=== PATIENT | female | born 1955 | race Caucasian/White ===

== ENCOUNTER 2016-12-17 22:50 | Inpatient (IN) | payer OTHER, MEDICAID ==
[~2016-12-17] VITALS: Ht 157.5 cm; Wt 128.7 kg
[~2016-12-17 22:50] MED LIST: ADVAI500I INH; ALBU17I INH; ALPR.25 PO; DUONI INH; FURO1TAB93 PO; HYDR-3129 PO; LEFL20 PO; LISI40TA PO; MILN50 PO; MONT10TA2 PO; PERC10TA27 PO; PROT40TA PO; TRAM50 PO; WARF3TAB PO; ZETI10TA5 PO; ZOCO80TA PO; ZOLP10TA3 PO
[2016-12-17 22:55] VITALS: BP 185/106; PULSE 116; RESP 16; TEMP 98.6; O2SAT 98
--- NOTE | 2016-12-17 23:38 | RADRPT ---
EXAM DATE/TIME: 12/17/2016 23:26 [facility] COMPARISON: No previous studies available for comparison. INDICATIONS : Left lateral wrist pain. No known injury. MEDICAL HISTORY : None. SURGICAL HISTORY : None. ENCOUNTER: Initial ACUITY: 2 days PAIN SCORE: 9/10 LOCATION: Left upper extremity FINDINGS: Three view examination of the left wrist demonstrates no soft tissue swelling, dislocation, or fractu re. The carpal bones are in normal alignment. The joint spaces are maintained. Bony mineralization is normal. CONCLUSION: 1. 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 No acute bony a bnormality. Uli Wheeler MD on December 17, 2016 at 23:32 Board Certified Radiologist. This report was verified electronically.
[2016-12-17 23:45] LABS: AUTOMATED NEUTROPHIL # 5.7 TH/MM3 (1.8-7.7); BASOPHIL # 0.1 TH/MM3 (0-0.2); BASOPHIL % 1.4 % (0.0-2.0); EOSINOPHIL # 0.3 TH/MM3 (0-0.4); EOSINOPHIL % 3.7 % (0.0-4.0); HEMATOCRIT 44.1 % (35.0-46.0); HEMO FLAGS DIFF FINAL; LYMPH % 22.8 % (9.0-44.0); MEAN CELL VOLUME 83.2 FL (80.0-100.0); MEAN CORPUSCULAR HEMOGLOBIN 27.6 PG (27.0-34.0); MEAN CORPUSCULAR HGB CONC 33.2 % (32.0-36.0); NEUT % 64.1 % (16.0-70.0); PLATELET COUNT 225 TH/MM3 (150-450); RED CELL DISTRIBUTION WIDTH 14.8 % (11.6-17.2); WHITE BLOOD COUNT 8.9 TH/MM3 (4.0-11.0)
[2016-12-18] VITALS (14 sets, daily range): BP systolic 106–171; BP diastolic 54–91; PULSE 67–86; RESP 16–18; TEMP 96.5–98.4; O2SAT 92–96
[2016-12-18 00:13] LABS: BICARBONATE 24.9 MEQ/L (21.0-32.0); POTASSIUM 3.8 MEQ/L (3.5-5.1)
[2016-12-18] MEDS ORDERED: AMLO5TAB2 PO (00:20)
[2016-12-18] MEDS ORDERED: LOSA100T PO (00:20)
[2016-12-18] MEDS ORDERED: CYCL1TAB29 PO (00:20)
[2016-12-18] MEDS ORDERED: AMBI10TA PO (00:20)
[2016-12-18] MEDS ORDERED: ZOLP10TA3 PO (00:20)
[2016-12-18] MEDS ORDERED: PANT40TA3 PO (00:20)
[2016-12-18] MEDS ORDERED: ADVA100A INH (00:20)
[2016-12-18] MEDS ORDERED: ALBUAER3 INH (00:20)
[2016-12-18] MEDS ORDERED: WARF-23 PO (00:20)
[2016-12-18] MEDS ORDERED: DICL1CAP4 PO (00:20)
[2016-12-18] MEDS ORDERED: FURO40TA PO (00:20)
[2016-12-18 00:31] LABS: PROTHROMBIN TIME - PATIENT 153.3 SEC (9.8-11.6)
[2016-12-18 00:34] LABS: INTERNATIONAL NORMALIZED RATIO 12.4 RATIO
--- NOTE | 2016-12-18 00:49 | PD ---
HPI Chief Complaint: Injury Time Seen by Provider: 23:13 Travel History International Travel<30 days: No Contact w/Intl Traveler<30days: [place] Traveled to: [facility] Traveled to known affect area: No History of Present Illness HPI 61 year-old female presents to the emergency department by private transportation complaining of increasing pain and swelling of the left upper extremity since last evening. Pain is primarily localized to the left wrist but also effects the entire arm. Patient states she has history of previous DVT and PE. Patient takes Coumadin 5 mg daily at 11 PM. Last dose of Coumadin was Monday evening at 11 PM. Patient denies any recent injury or fall in the last several days however at the end of October did have a fall while visiting in the [facility]. She denies any recent head injury. Patient's had no nosebleed no bleeding from her gums no hemoptysis no hematemesis no coffee- ground emesis no melena hematochezia. Patient states occasionally she notes a small amount of blood in her urine. Patient has had some increased bruising of late but she frequently has increased bruising. Patient states she has been home returning from the visit to the [facility] 2 weeks ago. Patient states while she was in the [facility] she ate a lot of that she and once returning here her diet has changed and has not been eating any vegetables. Patient denies any lower extremity pain or swelling. Patient has had no shortness of breath pleuritic pain or chest pain. Patient also denies any fever or chills. PFSH Past Medical History Narrative Medical Anemia arthritis asthma DVT PE [place] filter Coumadin therapy diabetes COPD dyslipidemia anxiety depression cholecystectomy hysterectomy no tobacco use nursing notes reviewed Anemia: Yes Arthritis: Yes Asthma: Yes Autoimmune Disease: No Anxiety: Yes Depression: Yes Heart Rhythm Problems: Yes Cancer: Yes (UTERUS) Cardiovascular Problems: Yes (IVC FILTER) High Cholesterol: Yes Chemotherapy: No Chest Pain: Yes Congestive Heart Failure: No COPD: Yes Cerebrovascular Accident: No Diabetes: Yes (CONTROLLED BY DIET) Patient Takes Glucophage: No Diminished Hearing: No Deep Vein Thrombosis: Yes Endocrine: Yes Gastrointestinal Disorders: Yes GERD: Yes Genitourinary: Yes (LEFT KIDNEY MASS) Headaches: Yes Hiatal Hernia: Yes Hypertension: Yes Immune Disorder: No Inguinal Hernia: Yes Implanted Vascular Access Dvce: No Kidney Stones: No Musculoskeletal: Yes ( THERAPY FOR BILAT KNEES) Neurologic: Yes Psychiatric: Yes Reproductive: No Respiratory: Yes (HOME 02) Immunizations Current: Yes Migraines: Yes Pneumonia: Yes Radiation Therapy: No Renal Failure: No Seizures: No Sickle Cell Disease: No Sleep Apnea: Yes (CPAP AT HOME. ) Thyroid Disease: No Ulcer: No Tetanus Vaccination: < 5 Years Influenza Vaccination: Yes PNEUMOCCOCAL Vaccine (Year): 2 ?: Not Menopausal: Yes : 7 Para: 6 Miscarriage: 1 Past Surgical History Abdominal Surgery: Yes (MULTIPLE HERNIA- MESH IN PLACE) AICD: No Appendectomy: Yes Arteriovenous Shunt: No Cardiac Surgery: No Cholecystectomy: Yes Ear Surgery: No Endocrine Surgery: No Eye Surgery: No Genitourinary Surgery: No Gynecologic Surgery: Yes (HYSTERECTOMY) Hysterectomy: Yes Insulin Pump: No Joint Replacement: No Oral Surgery: No Pacemaker: No Thoracic Surgery: No Other Surgery: Yes (VENA CAVA FILTER-06/14/11) Social History Alcohol Use: No Tobacco Use: No Substance Use: No Allergies-Medications (Allergen,Severity, Reaction): Coded Allergies: ibuprofen (Unverified Allergy, Severe, ITCHING, 11/29/16) Reported Meds & Prescriptions Reported Meds & Active Scripts Active Reported Proair Hfa 8.5 GM Inh (Albuterol Sulfate) 90 Mcg/Act Aer 1 Puff INH Q4H PRN 108 mcg/actuation Advair Diskus Inh (Fluticasone-Salmeterol Inh) 100-50 Mcg/Blist Aer 1 Puff INH BID Rinse mouth after use. Zorvolex (Diclofenac) 35 Mg Cap 75 Mg PO DAILY Warfarin 5 Mg Tab 5 Mg PO DAILY Furosemide 40 Mg Tab 40 Mg PO DAILY Pantoprazole (Pantoprazole Sodium) 40 Mg Tab 40 Mg PO DAILY Zolpidem (Zolpidem Tartrate) 10 Mg Tab 10 Mg PO HS PRN Amlodipine (Amlodipine Besylate) 5 Mg Tab 5 Mg PO DAILY Losartan (Losartan Potassium) 100 Mg Tab 100 Mg PO DAILY Flexeril (Cyclobenzaprine HCl) 10 Mg Tab 10 Mg PO TID Ambien (Zolpidem Tartrate) 10 Mg Tab 10 Mg PO HS PRN Review of Systems Except as stated in HPI: all other systems reviewed are Neg General / Constitutional: No: Fever, Chills HENT: No: Congestion, Nosebleed, Gingival Bleeding Cardiovascular: No: Chest Pain or Discomfort Respiratory: No: Shortness of Breath, Hemoptysis, Pleuritic Pain Gastrointestinal: No: Nausea, Vomiting, Hematemesis, Hematochezia Genitourinary: No: Hematuria, Vaginal Bleeding Musculoskeletal: Positive: Edema (left upper extremity), Pain (left upper extremity) Skin: No Rash Neurologic: No: Weakness Psychiatric: No: Anxiety Endocrine: No: Heat Intolerance Hematologic/Lymphatic: Positive: Easy Bruising Physical Exam Narrative GENERAL: Well developed well nourished female --no acute distress no respiratory distress SKIN: Warm and dry. HEAD: Normocephalic. EYES: No scleral icterus. No injection or drainage. NECK: Supple, trachea midline. No JVD or lymphadenopathy. CARDIOVASCULAR: Regular rate and rhythm without murmurs, gallops, or rubs. RESPIRATORY: Breath sounds equal bilaterally. No accessory muscle use. GASTROINTESTINAL: Abdomen soft, non-tender, nondistended. MUSCULOSKELETAL: No cyanosis, LUE edema tender left wrist increased pain on range of motion distally neurovascularly tendon intact; capillary refill less than 2 seconds; radial ulnar pulses 2++=. BACK: Nontender without obvious deformity. No CVA tenderness. Data Data Last Documented VS Vital Signs Date Time Temp Pulse Resp B/P (MAP) Pulse Ox O2 Delivery O2 Flow Rate FiO2 12/18/16 02:33 80 16 164/91 (115) 96 Room Air 12/17/16 22:55 98.6 Orders Orders Wrist, Complete ([id number]) (12/17/16 ) Us Arm Venous Doppler (12/17/16 ) Prothrombin Time / Inr (Pt) (12/17/16 23:13) Complete Blood Count With Diff (12/17/16 23:13) Basic Metabolic Panel (Bmp) (12/17/16 23:13) ^ Saline Lock (12/18/16 00:49) Phytonadione (Mephyton) (12/18/16 01:00) Type And Screen (12/18/16 00:49) Acetamin-Hydrocod 325-5 Mg (Holliday 5-325 (12/18/16 01:15) Urinalysis - C+S If Indicated (12/18/16 01:30) Admit Order (Ed Use Only) (12/18/16 ) ^ Saline Lock (12/18/16 02:37) Resp Oxygen Alex C Titrat 1-4 L (12/18/16 ) Notify Dr: Other (12/18/16 02:37) Sodium Chloride 0.9% Flush (Ns Flush) (12/18/16 09:00) Sodium Chloride 0.9% Flush (Ns Flush) (12/18/16 02:45) Labs Laboratory Tests Test 12/17/16 23:30 White Blood Count 8.9 TH/MM3 Red Blood Count 5.30 MIL/MM3 Hemoglobin 14.7 GM/DL Hematocrit 44.1 % Mean Corpuscular Volume 83.2 FL Mean Corpuscular Hemoglobin 27.6 PG Mean Corpuscular Hemoglobin Concent 33.2 % Red Cell Distribution Width 14.8 % Platelet Count 225 TH/MM3 Mean Platelet Volume 10.9 FL Neutrophils (%) (Auto) 64.1 % Lymphocytes (%) (Auto) 22.8 % Monocytes (%) (Auto) 8.0 % Eosinophils (%) (Auto) 3.7 % Basophils (%) (Auto) 1.4 % Neutrophils # (Auto) 5.7 TH/MM3 Lymphocytes # (Auto) 2.0 TH/MM3 Monocytes # (Auto) 0.7 TH/MM3 Eosinophils # (Auto) 0.3 TH/MM3 Basophils # (Auto) 0.1 TH/MM3 CBC Comment DIFF FINAL Differential Comment Prothrombin Time 153.3 SEC Prothromb Time International Ratio 12.4 RATIO Blood Urea Nitrogen 13 MG/DL Creatinine 0.90 MG/DL Random Glucose 134 MG/DL Calcium Level 8.7 MG/DL Sodium Level 140 MEQ/L Potassium Level 3.8 MEQ/L Chloride Level 106 MEQ/L Carbon Dioxide Level 24.9 MEQ/L Anion Gap 9 MEQ/L Estimat Glomerular Filtration Rate 64 ML/MIN [facility] Medical Decision Making Medical Screen Exam Complete: Yes Emergency Medical Condition: Yes Medical Record Reviewed: Yes Interpretation(s) INR 12.9 Ultrasound: No DVT Left forearm x-ray: No acute abnormality Differential Diagnosis Left upper extremity pain, DVT, arthritis, occult fracture, contusion, cervical radiculopathy, cellulitis Narrative Course Well-developed obese female laying of severe pain to the left upper extremity that she reports is new without any recent injury or fall 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 Patient denies fever or chills. No redness or increased warmth. No pallor or coolness no evidence for limits ischemia Imaging study that extremity identified informed no acute bony injury arthritis is present Ultrasound identifies no DVT INR is found to be markedly prolonged at 12.9 INR Patient is aware that INR is prolonged and now reports that since being in the emergency department has noticed increasing bruising of the right upper extremity that was not present upon her arrival and also notes that she has had some bleeding with urination. Patient at high risk for fall therefore patient' s case discussed with on-call medicine to put in for observation to to follow up on repeat INR patient otherwise stable. Physician Communication Physician Communication discussed with [employer] medicine service Diagnosis Primary Impression: Supratherapeutic INR Admitting Information Admitting Physician Requests: Observation Ruby Hammonds MD Dec 18, 2016 00:49
[2016-12-18] MEDS ORDERED: PHYTONADIONE 5 MG TAB PO ONE ×2 (01:00→09:00)
--- NOTE | 2016-12-18 01:13 | RADRPT ---
EXAM DATE/TIME: 12/18/2016 00:29 [facility] COMPARISON: No previous studies available for comparison. INDICATIONS : Left arm pain, numbness, and tingling. MEDICAL HISTORY : Hypertension. Hypercholesterolemia. Chronic obstructive pulmonary disease. Migraines. Irregular heart beat. DVT. Asthma. Pneumonia. Sleep apnea. Hiatal hernia. GERD. . Left kidney mass. Arthriti s. Osteoporosis. Diabetes. Liver disease. Depression. Anxiety. Uterine cancer. Blood transfusion. Ing uinal hernia. SURGICAL HISTORY : Cholecystectomy. Appendectomy. Multiple hernia repairs. Hysterectomy. IVC filter. ENCOUNTER: Initial ACUITY: 2 day PAIN SCORE: 6/10 LOCATION: Left arm. FINDINGS: There is spontaneous flow documented in the brachial, basilic, cephalic, axillary, and subclavian vei ns. The vessels are compressible and augmentation response is documented. No filling defects are se en. The flow is phasic with respiration. Direction of flow in the jugular vein is caudal. CONCLUSION: Normal examination. Uli Wheeler MD on December 18, 2016 at 1:11 Board Certified Radiologist. This report was verified electronically.
[2016-12-18] MEDS ORDERED: ACETAMINOPHEN/HYDROcodone 325 MG/5 MG TAB PO ONE (01:15)
[2016-12-18] MEDS ORDERED: SENNOSIDES 8.6 MG TAB PO PRN (02:45)
[2016-12-18] MEDS ORDERED: NALOXONE HCL 0.4 MG/ML AMP IV PRN (02:45)
[2016-12-18] MEDS ORDERED: SODIUM CHLORIDE 0.9% FLUSH 10 ML FLUSH IV FLUSH PRN (02:45)
[2016-12-18] MEDS ORDERED: SODIUM CHLORIDE 0.9% FLUSH 10 ML FLUSH IVF PRN (02:45)
[2016-12-18] MEDS ORDERED: BISACODYL 10 MG SUPP RECTAL PRN (02:45)
[2016-12-18] MEDS ORDERED: ONDANSETRON HCL 4 MG/2 ML VIAL IVP PRN (02:45)
[2016-12-18] MEDS ORDERED: LACTULOSE SYRUP 20 GM/30 ML CUP PO PRN (02:45)
[2016-12-18 03:41] LABS: BACTERIA, URINE RARE /hpf; BLOOD, URINE NEG (NEG); COMMENT (UR) CULT NOT INDICATED; CULTURE IF INDICATED CULT NOT INDICATED; GLUCOSE,URINE NEG (NEG); KETONE, URINE NEG (NEG); MUCUS URINE FEW /lpf (OCC); NITRITE,URINE NEG (NEG); PH, URINE 6.5 (5.0-8.5); SQUAMOUS EPITHELIAL CELL URINE <1 /hpf (0-5); URINE COLOR LIGHT-YELLOW (YELLW/STRAW)
[2016-12-18] MEDS: SODIUM CHLOR 0.9% 1000 ML INJ 1,000 ML IV SCH ×2 (04:05→20:47)
[2016-12-18] MEDS: amLODIPine BESYLATE 5 MG TAB PO SCH ×2 (04:05→10:04)
[2016-12-18] MEDS ORDERED: ACETAMINOPHEN 325 MG TAB PO PRN (06:15)
[2016-12-18] MEDS ORDERED: ENALAPRILAT 1.25 MG/ML VIAL IV PUSH PRN (06:45)
[2016-12-18 07:28] LABS: PROTHROMBIN TIME - PATIENT 134.7 SEC (9.8-11.6)
[2016-12-18] MEDS: DOCUSATE SODIUM 50 MG/SENNA 8.6 MG TAB PO SCH ×2 (09:00→20:44)
[2016-12-18] MEDS ORDERED: NON-FORMULARY DRUG (Fluticasone-Salmeterol Inh (Advair Diskus Inh) 1 PUFF) INH SCH (09:00)
[2016-12-18] MEDS ORDERED: amLODIPine BESYLATE 5 MG TAB PO SCH (09:00)
[2016-12-18] MEDS ORDERED: SODIUM CHLORIDE 0.9% FLUSH 10 ML FLUSH IV FLUSH SCH (09:00)
[2016-12-18 09:20] LABS: AUTOMATED NEUTROPHIL # 4.7 TH/MM3 (1.8-7.7); BASOPHIL % 0.2 % (0.0-2.0); EOSINOPHIL # 0.3 TH/MM3 (0-0.4); EOSINOPHIL % 4.3 % (0.0-4.0); HEMO FLAGS DIFF FINAL; LYMPH % 27.8 % (9.0-44.0); LYMPHOCYTE # 2.2 TH/MM3 (1.0-4.8); MEAN CELL VOLUME 83.9 FL (80.0-100.0); MEAN CORPUSCULAR HEMOGLOBIN 26.8 PG (27.0-34.0); MEAN CORPUSCULAR HGB CONC 31.9 % (32.0-36.0); MONO % 9.4 % (0.0-8.0); NEUT % 58.3 % (16.0-70.0); PLATELET COUNT 223 TH/MM3 (150-450); RED BLOOD COUNT 5.12 MIL/MM3 (4.00-5.30); RED CELL DISTRIBUTION WIDTH 14.5 % (11.6-17.2)
--- NOTE | 2016-12-18 09:25 | EKG ---
Date Performed: 12/18/2016 Time Performed: 08:54:47 PTAGE: 61 years EKG: Sinus rhythm NONSPECIFIC T-WAVE ABNORMALITY BORDERLINE ECG PREVIOUS TRACING : 09/03/2011 07.33 DOCTOR: Trav Alves Interpretating Date/Time 12/18/2016 09:21:52
--- NOTE | 2016-12-18 09:29 | HHI.HP ---
HPI Service [facility] Primary Care Physician Edgard Corral MD Admission Diagnosis coumadin coagulopathy Diagnoses: Chief Complaint: Left arm pain Travel History International Travel<30 Days: No Contact w/Intl Traveler <30 Da: [place] Traveled to: [facility] Traveled to Known Affected Are: No History of Present Illness This is a pleasant 61-year-old female who presented to the emergency room with complaint of left wrist pain. Patient has significant past medical history diet -controlled diabetes, anxiety, depression, rheumatoid arthritis, DVT and PE, Maame filter, chronic anticoagulation therapy with Coumadin. Patient indicates that the pain started last evening, started on the wrist inner aspect and then moved up to her shoulder and chest wall, the pain to the wrist is worse with movement and with minimal touch. Denies any recent injury. However when she was in the [facility] October she had a bad fall and since then she's had a lot of joint pain especially in her shoulders and knees. She does have a history of rheumatoid arthritis for which she follows up regularly with Dr. Juarez. Dr. Diamond had ordered CT scans of her shoulders and knees as outpatient to evaluate, however the patient had not completed dose. Patient denies any other symptoms such as fever, chills, shortness of breath, no diaphoresis. She presented to the emergency room for further evaluation, had ultrasound of the left arm that was negative for DVT. Left wrist x-ray showed osteoarthritis. Laboratory workup was completed, patient was noted with supratherapeutic INR, initially 12.4. She did received vitamin K 5 mg PO and came down to 11. BMP was unremarkable. Patient indicates that she has been on Coumadin 5 mg for many years and has not had any issues with elevated INR in the past however she has been noncompliant with her diet and has been eating a lot of spinach. Her last INR was at her PCP and it was 2. Denies any hematemesis, no hemoptysis, no blood in the stool, no blood in urine. Patient is not on any maintenance therapy for her rheumatoid arthritis, she is on diclofenac and Flexeril. Patient is admitted for further evaluation and treatment. Review of Systems Constitutional: DENIES: Diaphoretic episodes, Fatigue, Fever, Weight gain, Weight loss, Chills, Dizziness, Change in appetite, Night Sweats Endocrine: DENIES: Abnorml menstrual pattern, Heat/cold intolerance, Polydipsia , Polyuria, Polyphagia Eyes: DENIES: Blurred vision, Diplopia, Eye inflammation, Eye pain, Vision loss , Photosensitivity, Double Vision Ears, nose, mouth, throat: DENIES: Tinnitus, Hearing loss, Vertigo, Nasal discharge, Oral lesions, Throat pain, Hoarseness, Ear Pain, Running Nose, Epistaxis, Sinus Pain, Toothache, Odynophagia Respiratory: DENIES: Apneas, Cough, Snoring, Wheezing, Hemoptysis, Sputum production, Shortness of breath Cardiovascular: DENIES: Chest pain, Palpitations, Syncope, Dyspnea on Exertion , PND, Lower Extremity Edema, Orthopnea, Claudication Gastrointestinal: DENIES: Abdominal pain, Black stools, Bloody stools, Constipation, Diarrhea, Nausea, Vomiting, Difficulty Swallowing, Anorexia Genitourinary: DENIES: Abnormal vaginal bleeding, Dysmenorrhea, Dyspareunia, Sexual dysfunction, Urinary frequency, Urinary incontinence, Urgency, Hematuria , Dysuria, Nocturia, Vaginal discharge Musculoskeletal: COMPLAINS OF: Joint pain (left wrist and arm), Muscle aches, Joint Swelling (left wrist), Back pain, Neck pain, DENIES: Stiffness Integumentary: DENIES: Abnormal pigmentation, Pruritus, Rash, Nail changes, Breast masses, Breast skin changes, Nipple discharge Hematologic/lymphatic: DENIES: Bruising, Lymphadenopathy Immunologic/allergic: DENIES: Eczema, Urticaria Neurologic: DENIES: Abnormal gait, Headache, Localized weakness, Paresthesias, Seizures, Speech Problems, Tremor, Poor Balance Psychiatric: DENIES: Anxiety, Confusion, Mood changes, Depression, Hallucinations, Agitation, Suicidal Ideation, Homicidal Ideation, Delusions Past Family Social History Past Medical History Hypertension Diabetes-diet controlled COPD-has never smoked Obstructive sleep apnea Rheumatoid Arthritis Degenerative joint disease History of peptic ulcer disease Obesity History of pulmonary emboli Past Surgical History IVC filter placement Total hysterectomy Cholecystectomy Appendectomy EGD/colonoscopy Reported Medications Reported Meds & Active Scripts Active Reported Proair Hfa 8.5 GM Inh (Albuterol Sulfate) 90 Mcg/Act Aer 1 Puff INH Q4H PRN 108 mcg/actuation Advair Diskus Inh (Fluticasone-Salmeterol Inh) 100-50 Mcg/Blist Aer 1 Puff INH BID Rinse mouth after use. Zorvolex (Diclofenac) 35 Mg Cap 75 Mg PO DAILY Warfarin 5 Mg Tab 5 Mg PO DAILY Furosemide 40 Mg Tab 40 Mg PO DAILY Pantoprazole (Pantoprazole Sodium) 40 Mg Tab 40 Mg PO DAILY Zolpidem (Zolpidem Tartrate) 10 Mg Tab 10 Mg PO HS PRN Amlodipine (Amlodipine Besylate) 5 Mg Tab 5 Mg PO DAILY Losartan (Losartan Potassium) 100 Mg Tab 100 Mg PO DAILY Flexeril (Cyclobenzaprine HCl) 10 Mg Tab 10 Mg PO TID Ambien (Zolpidem Tartrate) 10 Mg Tab 10 Mg PO HS PRN Allergies: Coded Allergies: ibuprofen (Unverified Allergy, Severe, ITCHING, 11/29/16) Active Ordered Medications Inpatient Medications Acetaminophen (Tylenol) 650 mg Q4H PRN PO PAIN SCALE 4 TO 10 Last administered on 12/18/16 06:34; Start 12/18/16 at 06:15 Acetaminophen/ Hydrocodone Bitart (Brooten 5-325 Mg) 1 tab ONCE ONCE PO Last administered on 12/18/16 01:37; Start 12/18/16 at 01:15; Stop 12/18/16 at 01:17; Status DC Amlodipine Besylate (Norvasc) 5 mg DAILY PO Last administered on 12/18/16 04:05 ; Start 12/18/16 at 03:00 Bisacodyl (Dulcolax Supp) 10 mg DAILY PRN RECTAL SEVERE CONSITIPATION; Start at 02:45 Budesonide/ Formoterol Fumarate (Symbicort 80-4.5 Mcg Inh) 2 puff BID INH ; Start 12/18/16 at 09:00 Cyclobenzaprine HCl (Flexeril) 10 mg TID PO ; Start 12/18/16 at 09:00 Enalaprilat (Vasotec Inj) 1.25 mg Q6H PRN IV PUSH SBP>160, DBP>90 Last administered on 12/18/16 06:42; Start 12/18/16 at 06:45 Lactulose (Lactulose Liq) 30 ml DAILY PRN PO SEVERE CONSITIPATION; Start at 02:45 Losartan Potassium (Cozaar) 100 mg DAILY PO ; Start 12/18/16 at 09:00 Magnesium Hydroxide (Milk Of Magnesia Liq) 30 ml Q12H PRN PO MILD - MODERATE CONSTIPATION; Start 12/18/16 at 02:45 Naloxone HCl (Narcan Inj) 0.4 mg UNSCH PRN IV SEE LABEL COMMENTS; Start at 02:45 Non-Formulary Medication 1 puff BID INH ; Start 12/18/16 at 09:00; Stop 12/18/16 at 09:00; Status DC Ondansetron HCl (Zofran Inj) 4 mg Q6H PRN IVP NAUSEA OR VOMITING; Start at 02:45 Pantoprazole Sodium (Protonix) 40 mg DAILY PO ; Start 12/18/16 at 09:00 Phytonadione (Mephyton) 5 mg ONCE ONCE PO ; Start 12/18/16 at 09:00; Stop at 09:01; Status DC Senna/Docusate Sodium (Marilyn-Colace) 1 tab BID PO ; Start 12/18/16 at 09:00 Sennosides (Senokot) 17.2 mg Q12H PRN PO MODERATE - SEVERE CONSTIPATION; Start 12/18/16 at 02:45 Sodium Chloride (NS Flush) 2 ml BID IV FLUSH ; Start 12/18/16 at 09:00 Family History Reviewed and noncontributory Social History Patient denies any tobacco, alcohol or illicit drug Physical Exam Vital Signs Vital Signs Date Time Temp Pulse Resp B/P (MAP) Pulse Ox O2 Delivery O2 Flow Rate FiO2 12/18/16 07:24 96.5 68 18 128/76 (93) 95 12/18/16 05:36 95 Nasal Cannula 2.00 Humidified 12/18/16 05:32 96.9 80 18 171/85 (113) 95 12/18/16 05:10 12/18/16 03:33 96 12/18/16 02:33 80 16 164/91 (115) 96 Room Air 12/17/16 22:55 98.6 116 16 185/106 (132) 98 Room Air Physical Exam GENERAL: This is a well-nourished, well-developed patient, in no apparent distress. SKIN: No rashes, ecchymoses or lesions. Cool and dry. HEAD: Atraumatic. Normocephalic. No temporal or scalp tenderness. EYES: Pupils equal round and reactive. Extraocular motions intact. No scleral icterus. No injection or drainage. ENT: Nose without bleeding, purulent drainage or septal hematoma. Throat without erythema, tonsillar hypertrophy or exudate. Uvula midline. Airway patent. NECK: Trachea midline. No JVD or lymphadenopathy. Supple, nontender, no meningeal signs. CARDIOVASCULAR: Regular rate and rhythm without murmurs, gallops, or rubs. RESPIRATORY: Clear to auscultation. Breath sounds equal bilaterally. No wheezes , rales, or rhonchi. GASTROINTESTINAL: Abdomen soft, non-tender, nondistended. No hepato-splenomegaly , or palpable masses. No guarding. MUSCULOSKELETAL: Left wrist slightly swollen, tender to palpation to the volar aspect. Increased pain with flexion. No other joint abnormality. Bilateral lower extremities without any clubbing, no cyanosis, trace pretibial edema. Pedal pulses 2+ bilaterally NEUROLOGICAL: Awake, alert oriented 3. No focal deficits Laboratory Laboratory Tests Test 12/17/16 23:30 12/18/16 03:25 12/18/16 06:55 12/18/16 09:05 White Blood Count 8.9 8.0 Red Blood Count 5.30 5.12 Hemoglobin 14.7 13.7 Hematocrit 44.1 43.0 Mean Corpuscular Volume 83.2 83.9 Mean Corpuscular Hemoglobin 27.6 26.8 Mean Corpuscular Hemoglobin Concent 33.2 31.9 Red Cell Distribution Width 14.8 14.5 Platelet Count 225 223 Mean Platelet Volume 10.9 10.0 Neutrophils (%) (Auto) 64.1 58.3 Lymphocytes (%) (Auto) 22.8 27.8 Monocytes (%) (Auto) 8.0 9.4 Eosinophils (%) (Auto) 3.7 4.3 Basophils (%) (Auto) 1.4 0.2 Neutrophils # (Auto) 5.7 4.7 Lymphocytes # (Auto) 2.0 2.2 Monocytes # (Auto) 0.7 0.8 Eosinophils # (Auto) 0.3 0.3 Basophils # (Auto) 0.1 0.0 CBC Comment DIFF FINAL DIFF FINAL Differential Comment Prothrombin Time 153.3 134.7 Prothromb Time International Ratio 12.4 11.0 Blood Urea Nitrogen 13 Creatinine 0.90 Random Glucose 134 Calcium Level 8.7 Sodium Level 140 Potassium Level 3.8 Chloride Level 106 Carbon Dioxide Level 24.9 Anion Gap 9 Estimat Glomerular Filtration Rate 64 Urine Color LIGHT-YELLOW Urine Turbidity CLEAR Urine pH 6.5 Urine Specific [place] 1.009 Urine Protein NEG Urine Glucose (UA) NEG Urine Ketones NEG Urine Occult Blood NEG Urine Nitrite NEG Urine Bilirubin NEG Urine Urobilinogen LESS THAN 2.0 Urine Leukocyte Esterase NEG Urine RBC 1 Urine WBC 1 Urine Squamous Epithelial Cells <1 Urine Bacteria RARE Urine Mucus FEW Microscopic Urinalysis Comment CULT NOT INDICATED Result Diagram: 12/18/16 0905 12/17/16 2330 Imaging Last Impressions Wrist X-Ray 12/17/16 0000 Signed Impressions: Service Date/Time: Saturday, December 17, 2016 23:26 - CONCLUSION: 1. 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 No acute bony abnormality. Uli Wheeler MD Upper Extremity Ultrasound 12/17/16 0000 Signed Impressions: Service Date/Time: Sunday, December 18, 2016 00:29 - CONCLUSION: Normal examination. Uli Wheeler MD Caprini VTE Risk Assessment Caprini VTE Risk Assessment: Mod/High Risk (score >= 2) VTE Pharm Contraindication: Coagulopathy,INR elevated Caprini Risk Assessment Model Point Value = 1 Point Value = 2 Point Value = 3 Point Value = 5 Age 41-60 Minor surgery BMI > 25 kg/m2 Swollen legs Varicose veins or History of unexplained or recurrent spontaneous Oral contraceptives or hormone replacement Sepsis (< 1 month) Serious lung disease, including pneumonia (< 1 month) Abnormal pulmonary function Acute myocardial infarction Congestive heart failure (< 1 month) History of inflammatory bowel disease Medical patient at bed rest Age 61-74 Arthroscopic surgery Major open surgery (> 45 min) Laparoscopic surgery (> 45 min) Malignancy Confined to bed (> 72 hours) Immobilizing plaster cast Central venous access Age >= 75 History of VTE Family history of VTE Factor V Leiden Prothrombin [id number] Lupus anticoagulant Anticardiolipin antibodies Elevated serum homocysteine Heparin-induced thrombocytopenia Other congenital or acquired thrombophilia Stroke (< 1 month) Elective arthroplasty Hip, pelvis, or leg fracture Acute spinal cord injury (< 1 month) Prophylaxis Regimen Total Risk Factor Score Risk Level Prophylaxis Regimen 0-1 Low Early ambulation 2 Moderate Order ONE of the following: *Sequential Compression Device (SCD) *Heparin 5000 units SQ BID 3-4 Higher Order ONE of the following medications: *Heparin 5000 units SQ TID *Enoxaparin/Lovenox 40 mg SQ daily (WT < 150 kg, CrCl > 30 mL/min) *Enoxaparin/Lovenox 30 mg SQ daily (WT < 150 kg, CrCl > 10-29 mL/min) *Enoxaparin/Lovenox 30 mg SQ BID (WT < 150 kg, CrCl > 30 mL/min) AND/OR *Sequential Compression Device (SCD) 5 or more Highest Order ONE of the following medications: *Heparin 5000 units SQ TID (Preferred with Epidurals) *Enoxaparin/Lovenox 40 mg SQ daily (WT < 150 kg, CrCl > 30 mL/min) *Enoxaparin/Lovenox 30 mg SQ daily (WT < 150 kg, CrCl > 10-29 mL/min) *Enoxaparin/Lovenox 30 mg SQ BID (WT < 150 kg, CrCl > 30 mL/min) AND *Sequential Compression Device (SCD) Assessment and Plan Problem List: (1) Supratherapeutic INR ICD Codes: R79.1 - Abnormal coagulation profile Status: Acute (2) Left arm pain ICD Codes: M79.602 - Pain in left arm Status: Acute (3) HTN (hypertension) ICD Codes: I10 - Essential (primary) hypertension Status: Chronic (4) Rheumatoid arthritis flare ICD Codes: M06.9 - Rheumatoid arthritis, unspecified Status: Acute (5) Left wrist pain ICD Codes: M25.532 - Pain in left wrist Status: Acute (6) COPD (chronic obstructive pulmonary disease) ICD Codes: J44.9 - Chronic obstructive pulmonary disease, unspecified Status: Chronic (7) Obesity ICD Codes: E66.9 - Obesity, unspecified Status: Chronic (8) History of DVT (deep vein thrombosis) ICD Codes: Z86.718 - Personal history of other venous thrombosis and embolism Status: Chronic (9) Hx pulmonary embolism ICD Codes: Z86.711 - Personal history of pulmonary embolism Status: Chronic (10) S/P IVC filter ICD Codes: Z95.828 - Presence of other vascular implants and grafts Status: Chronic Assessment and Plan Admit to Dr. Yeager 61-year-old female presented to the emergency room with left wrist left arm pain radiating up to shoulder and chest wall. Possible rheumatoid arthritis flareup -Continue with serial cardiac enzymes -We will add Brooten as needed for pain -Check uric acid level -Short trial of prednisone 30 mg by mouth daily and titrate Supratherapeutic INR secondary to noncompliance with diet -We'll give 1 more dose of vitamin K 5 mg for total of 10 -Follow up INR 1600 -Monitor for any bleeding -INR daily Hypertension, stable -Resume home medications COPD, stable -Continue Symbicort -Monitor sats History DVT and PE, has IVC filter -We will resume Coumadin when INR between 2 and 3 All medications reviewed, initiated as indicated No need for anticoagulation at this time Or tonic for GI prophylaxis Plan of care has been discussed with the patient, attending and registered nurse. Further management of the patient will be dependent on the hospital course This patient was seen by myself and Dr. Yeager, this H&P is written on his behalf Problem Qualifiers (1) HTN (hypertension): Qualified Codes: I10 - Essential (primary) hypertension (2) COPD (chronic obstructive pulmonary disease): Qualified Codes: J44.9 - Chronic obstructive pulmonary disease, unspecified (3) Obesity: Cici Barbosa Dec 18, 2016 09:29
[2016-12-18 09:38] LABS: BICARBONATE 28.2 MEQ/L (21.0-32.0)
[2016-12-18] MEDS: BUDESONIDE-FORMOTEROL 80/4.5 MCG INHALER INH SCH ×2 (10:02→20:45)
[2016-12-18] MEDS: CYCLOBENZAPRINE HCL 10 MG TAB PO SCH ×3 (10:03→18:56)
[2016-12-18] MEDS: LOSARTAN 50 MG TAB PO SCH (10:04)
[2016-12-18] MEDS: SODIUM CHLORIDE 0.9% FLUSH 10 ML FLUSH IV FLUSH SCH ×2 (10:04→20:44)
[2016-12-18] MEDS: PANTOPRAZOLE SOD 40 MG DELAYED RELEASE TAB PO SCH (10:04)
[2016-12-18] MEDS: ACETAMINOPHEN/HYDROcodone 325 MG/7.5 MG TAB PO PRN ×2 (12:11→18:57)
[2016-12-18] MEDS: predniSONE 10 MG TAB PO SCH (12:11)
[2016-12-18 17:44] LABS: PROTHROMBIN TIME - PATIENT 108.8 SEC (9.8-11.6)
[2016-12-18] MEDS: MAGNESIUM HYDROXIDE SUSP 30 ML CUP PO PRN (20:44)
[2016-12-19] VITALS (8 sets, daily range): BP systolic 120–162; BP diastolic 58–76; PULSE 64–82; RESP 17–19; TEMP 96.7–98.5; O2SAT 94–97
[2016-12-19] MEDS: diphenhydrAMINE HCL 50 MG/ML VIAL IV PRN ×4 (01:36→17:22)
[2016-12-19 02:24] LABS: BACTERIA, URINE RARE /hpf; BLOOD, URINE NEG (NEG); COMMENT (UR) CULT NOT INDICATED; CULTURE IF INDICATED CULT NOT INDICATED; GLUCOSE,URINE NEG (NEG); KETONE, URINE NEG (NEG); MUCUS URINE FEW /lpf (OCC); NITRITE,URINE NEG (NEG); PH, URINE 6.5 (5.0-8.5); SQUAMOUS EPITHELIAL CELL URINE 1 /hpf (0-5); URINE COLOR LIGHT-YELLOW (YELLW/STRAW)
[2016-12-19 07:47] LABS: AUTOMATED NEUTROPHIL # 6.9 TH/MM3 (1.8-7.7); BASOPHIL # 0.1 TH/MM3 (0-0.2); BASOPHIL % 0.6 % (0.0-2.0); EOSINOPHIL # 0.1 TH/MM3 (0-0.4); EOSINOPHIL % 1.3 % (0.0-4.0); HEMATOCRIT 39.6 % (35.0-46.0); HEMO FLAGS DIFF FINAL; LYMPH % 17.2 % (9.0-44.0); LYMPHOCYTE # 1.6 TH/MM3 (1.0-4.8); MEAN CELL VOLUME 84.1 FL (80.0-100.0); MEAN CORPUSCULAR HEMOGLOBIN 27.6 PG (27.0-34.0); MEAN CORPUSCULAR HGB CONC 32.9 % (32.0-36.0); MONO % 8.6 % (0.0-8.0); NEUT % 72.3 % (16.0-70.0); PLATELET COUNT 204 TH/MM3 (150-450); RED BLOOD COUNT 4.71 MIL/MM3 (4.00-5.30); RED CELL DISTRIBUTION WIDTH 14.8 % (11.6-17.2); WHITE BLOOD COUNT 9.5 TH/MM3 (4.0-11.0)
[2016-12-19 07:57] LABS: PROTHROMBIN TIME - PATIENT 34.8 SEC (9.8-11.6)
[2016-12-19 08:11] LABS: BICARBONATE 27.8 MEQ/L (21.0-32.0)
[2016-12-19] MEDS: SODIUM CHLORIDE 0.9% FLUSH 10 ML FLUSH IV FLUSH SCH ×2 (09:00→20:23)
[2016-12-19] MEDS: LOSARTAN 50 MG TAB PO SCH (09:20)
[2016-12-19] MEDS: CYCLOBENZAPRINE HCL 10 MG TAB PO SCH ×3 (09:20→16:30)
[2016-12-19] MEDS: amLODIPine BESYLATE 5 MG TAB PO SCH (09:20)
[2016-12-19] MEDS: predniSONE 10 MG TAB PO SCH (09:20)
[2016-12-19] MEDS: PANTOPRAZOLE SOD 40 MG DELAYED RELEASE TAB PO SCH (09:20)
[2016-12-19] MEDS: DOCUSATE SODIUM 50 MG/SENNA 8.6 MG TAB PO SCH ×2 (09:20→20:23)
[2016-12-19] MEDS: BUDESONIDE-FORMOTEROL 80/4.5 MCG INHALER INH SCH ×2 (09:25→20:23)
[2016-12-19] MEDS: DICLOFENAC SODIUM 75 MG DELAYED RELEASE TAB PO SCH (11:32)
--- NOTE | 2016-12-19 11:33 | HHI.PR ---
Subjective Remarks broke out in rash with itching after 2nd unit of FFP BP also went up no fever no sob no cp no wheezing has had blood and FFP transfusions before left wrist pain slightly improved rash better, less itching. Objective Objective Results - Vital Signs Date Time Temp Pulse Resp B/P (MAP) Pulse Ox O2 Delivery O2 Flow Rate FiO2 12/19/16 08:00 97.0 68 17 123/64 (83) 97 12/19/16 03:58 96.7 64 18 130/67 (88) 96 12/19/16 00:30 97.7 73 18 162/76 95 12/18/16 23:00 97.9 67 16 118/65 94 12/18/16 22:42 97.7 69 16 118/65 94 12/18/16 20:35 95 Nasal Cannula 2.00 Humidified 12/18/16 20:35 96.8 86 18 118/64 94 12/18/16 20:20 98.4 76 18 106/54 (71) 95 12/18/16 17:44 94 21 12/18/16 16:55 97.0 68 18 118/67 95 12/18/16 16:39 96.5 68 18 122/74 94 12/18/16 15:15 96.5 68 18 122/74 (90) 94 12/18/16 13:42 92 21 I/O 12/18/16 12/18/16 12/18/16 12/19/16 12/19/16 12/19/16 07:00 15:00 23:00 07:00 15:00 23:00 Intake Total 100 ml 660 ml 1185 ml 1115 ml Balance 100 ml 660 ml 1185 ml 1115 ml Intake Oral 660 ml 360 ml 480 ml IV Total 100 ml 467 ml 225 ml FFP 338 ml 390 ml Blood Product IV Normal Saline Flush 20 ml 20 ml # Voids 3 4 3 # Bowel Movements 0 0 0 Result Diagram: 12/19/16 0711 12/19/16710 Imaging Last Impressions Wrist X-Ray 12/17/16 0000 Signed Impressions: Service Date/Time: Saturday, December 17, 2016 23:26 - CONCLUSION: 1. 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 No acute bony abnormality. Uli Wheeler MD Upper Extremity Ultrasound 12/17/16 0000 Signed Impressions: Service Date/Time: Sunday, December 18, 2016 00:29 - CONCLUSION: Normal examination. Uli Wheeler MD Other Results Laboratory Tests Test 12/18/16 16:59 12/19/16 01:26 12/19/16 07:11 Prothrombin Time 108.8 34.8 Prothromb Time International Ratio 9.0 3.0 Urine Color LIGHT-YELLOW Urine Turbidity HAZY Urine pH 6.5 Urine Specific [place] 1.006 Urine Protein NEG Urine Glucose (UA) NEG Urine Ketones NEG Urine Occult Blood NEG Urine Nitrite NEG Urine Bilirubin NEG Urine Urobilinogen LESS THAN 2.0 Urine Leukocyte Esterase NEG Urine RBC 2 Urine WBC 4 Urine Squamous Epithelial Cells 1 Urine Bacteria RARE Urine Mucus FEW Microscopic Urinalysis Comment CULT NOT INDICATED White Blood Count 9.5 Red Blood Count 4.71 Hemoglobin 13.0 Hematocrit 39.6 Mean Corpuscular Volume 84.1 Mean Corpuscular Hemoglobin 27.6 Mean Corpuscular Hemoglobin Concent 32.9 Red Cell Distribution Width 14.8 Platelet Count 204 Mean Platelet Volume 10.6 Neutrophils (%) (Auto) 72.3 Lymphocytes (%) (Auto) 17.2 Monocytes (%) (Auto) 8.6 Eosinophils (%) (Auto) 1.3 Basophils (%) (Auto) 0.6 Neutrophils # (Auto) 6.9 Lymphocytes # (Auto) 1.6 Monocytes # (Auto) 0.8 Eosinophils # (Auto) 0.1 Basophils # (Auto) 0.1 CBC Comment DIFF FINAL Differential Comment Blood Urea Nitrogen 11 Creatinine 0.71 Random Glucose 103 Calcium Level 8.7 Sodium Level 139 Potassium Level 4.0 Chloride Level 106 Carbon Dioxide Level 27.8 Anion Gap 5 Estimat Glomerular Filtration Rate 84 ROS General: Other (facial swelling) HEENT: No: Sore Throat, Dysphagia Cardiac: No: Chest Pain, Edema, Palpitations Pulmonary: No: Cough, SOB, Wheezing GI: No: Abdominal Pain, BM, Diarrhea, N/V /SUPER[employer]OR WHITE SUGAR: No: Dysuria, Urgency Neuro/MS: Other (left wrist pain ) Psych: No: Anxiety, Depression Skin: Rash (after 2nd unit of FFP with pruritus ) Physical Exam Physical Exam GENERAL: This is a well-nourished, well-developed patient, in no apparent distress. SKIN: pink petecheial rash, chest, legs, arms. HEAD: Atraumatic. Normocephalic. No temporal or scalp tenderness. EYES: Pupils equal round and reactive. Mild periorbital swelling. Extraocular motions intact. No scleral icterus. No injection or drainage. ENT: Nose without bleeding, purulent drainage or septal hematoma. Throat without erythema, tonsillar hypertrophy or exudate. Uvula midline. Airway patent. NECK: Trachea midline. No JVD or lymphadenopathy. Supple, nontender, no meningeal signs. CARDIOVASCULAR: Regular rate and rhythm without murmurs, gallops, or rubs. RESPIRATORY: Clear to auscultation. Breath sounds equal bilaterally. No wheezes , rales, or rhonchi. GASTROINTESTINAL: Abdomen soft, non-tender, nondistended. No hepato-splenomegaly , or palpable masses. No guarding. MUSCULOSKELETAL: Left wrist slightly swollen, tender to palpation to the volar aspect. Increased pain with flexion. No other joint abnormality. Bilateral lower extremities without any clubbing, no cyanosis, trace pretibial edema. Pedal pulses 2+ bilaterally NEUROLOGICAL: Awake, alert oriented 3. No focal deficits Urinary Catheter: No Vascular Central Line Catheter: No A/P Diagnosis: (1) Supratherapeutic INR ICD Codes: R79.1 - Abnormal coagulation profile Status: Acute (2) Left arm pain ICD Codes: M79.602 - Pain in left arm Status: Acute (3) HTN (hypertension) ICD Codes: I10 - Essential (primary) hypertension Status: Chronic (4) Rheumatoid arthritis flare ICD Codes: M06.9 - Rheumatoid arthritis, unspecified Status: Acute (5) Left wrist pain ICD Codes: M25.532 - Pain in left wrist Status: Acute (6) COPD (chronic obstructive pulmonary disease) ICD Codes: J44.9 - Chronic obstructive pulmonary disease, unspecified Status: Chronic (7) Obesity ICD Codes: E66.9 - Obesity, unspecified Status: Chronic (8) History of DVT (deep vein thrombosis) ICD Codes: Z86.718 - Personal history of other venous thrombosis and embolism Status: Chronic (9) Hx pulmonary embolism ICD Codes: Z86.711 - Personal history of pulmonary embolism Status: Chronic (10) S/P IVC filter ICD Codes: Z95.828 - Presence of other vascular implants and grafts Status: Chronic (11) Transfusion reaction ICD Codes: T80.92XA - Unspecified transfusion reaction, initial encounter Assessment and Plan 61-year-old female presented to the emergency room with left wrist left arm pain radiating up to shoulder and chest wall. Possible rheumatoid arthritis flareup -Continue with serial cardiac enzymes - [place] as needed for pain - uric acid level ok -Short trial of prednisone 30 mg by mouth daily and titrate-continue for now, some improvement Supratherapeutic INR secondary to noncompliance with diet -s/p vitamin K 10 + FFP, had reaction after 2nd unit -INR 3 -resume Coumadin -Monitor for any bleeding -INR daily -pharmacy for dosing Poss transfusion reaction, had rash, itching after 2nd unit. Protocol followed -monitor for stridor, wheezing -continue Benadryl PRN -improving Hypertension, stable -continue home medications COPD, stable -Continue Symbicort -Monitor sats History DVT and PE, has IVC filter -continue coumadin, INR 3 Coumadin for DVT prophylaxis PPI for GI prophylaxis Keep one more day to monitor for above reaction poss dc in am D/W RN D/W pt and granddaughter D/W Dr. Miranda This patient was seen by myself and Dr. Miranda, this H&P is written on his behalf Problem Qualifiers (1) HTN (hypertension): Qualified Codes: I10 - Essential (primary) hypertension (2) COPD (chronic obstructive pulmonary disease): Qualified Codes: J44.9 - Chronic obstructive pulmonary disease, unspecified (3) Obesity: (4) Transfusion reaction: Qualified Codes: T80.92XA - Unspecified transfusion reaction, initial encounter Cici Barbosa Dec 19, 2016 11:33
[2016-12-19] MEDS ORDERED: WARFARIN SOD 5 MG TAB PO SCH (16:00)
[2016-12-19] MEDS: ACETAMINOPHEN/HYDROcodone 325 MG/7.5 MG TAB PO PRN (16:38)
[2016-12-19] MEDS: SODIUM CHLOR 0.9% 1000 ML INJ 1,000 ML IV SCH (17:23)
[2016-12-19] MEDS: MAGNESIUM HYDROXIDE SUSP 30 ML CUP PO PRN (20:23)
[2016-12-20] VITALS (7 sets, daily range): BP systolic 124–172; BP diastolic 65–97; PULSE 67–92; RESP 16–20; TEMP 97.3–98.4; O2SAT 93–100
[2016-12-20] MEDS: CYCLOBENZAPRINE HCL 10 MG TAB PO SCH ×3 (08:24→18:23)
[2016-12-20] MEDS: DOCUSATE SODIUM 50 MG/SENNA 8.6 MG TAB PO SCH ×2 (08:24→21:00)
[2016-12-20] MEDS: PANTOPRAZOLE SOD 40 MG DELAYED RELEASE TAB PO SCH (08:24)
[2016-12-20] MEDS: DICLOFENAC SODIUM 75 MG DELAYED RELEASE TAB PO SCH (08:24)
[2016-12-20] MEDS: LOSARTAN 50 MG TAB PO SCH (08:24)
[2016-12-20] MEDS: amLODIPine BESYLATE 5 MG TAB PO SCH (08:25)
[2016-12-20] MEDS: diphenhydrAMINE HCL 50 MG/ML VIAL IV PRN ×2 (08:25→17:03)
[2016-12-20] MEDS: predniSONE 10 MG TAB PO SCH (08:25)
[2016-12-20] MEDS: SODIUM CHLORIDE 0.9% FLUSH 10 ML FLUSH IV FLUSH SCH ×2 (08:25→20:20)
[2016-12-20] MEDS: BUDESONIDE-FORMOTEROL 80/4.5 MCG INHALER INH SCH ×2 (08:27→20:20)
[2016-12-20 09:40] LABS: INTERNATIONAL NORMALIZED RATIO 3.1 RATIO; PROTHROMBIN TIME - PATIENT 35.6 SEC (9.8-11.6)
--- NOTE | 2016-12-20 10:51 | HHI.PR ---
Subjective Subjective Remarks up in chair family member in rm no acute pain or SOB urticaria mild (Dorene Benitez) Review of Systems Constitutional Constitutional Remarks 10 point ROS done, positives noted (Dorene Benitez) Integumentary Skin: Itching (improved) (Dorene Benitez) Psychiatric Psychiatric: Normal Mood (Dorene Benitez) Vitals/Results Vital Signs Vital Signs Date Time Temp Pulse Resp B/P (MAP) Pulse Ox O2 Delivery O2 Flow Rate FiO2 12/20/16 08:35 100 21 12/20/16 08:00 97.3 71 20 160/86 (110) 96 12/20/16 07:42 Nasal Cannula 2.00 12/20/16 07:42 Room Air 12/20/16 04:15 97.5 67 19 124/65 (84) 95 12/19/16 23:55 97.1 74 19 127/58 (81) 95 12/19/16 21:48 Nasal Cannula 2.00 12/19/16 20:15 97.4 69 18 133/67 (89) 94 12/19/16 16:00 98.5 82 18 144/73 (96) 94 12/19/16 12:58 94 Nasal Cannula 2.00 12/19/16 12:00 97.3 71 17 120/71 (87) 94 (Dorene Benitez) CBC/BMP: 12/19/16 0711 12/19/16 0711 Lab Results Laboratory Tests Test 12/20/16 08:41 Prothrombin Time 35.6 SEC Prothromb Time International Ratio 3.1 RATIO Imaging Remarks Last Impressions Wrist X-Ray 12/17/16 0000 Signed Impressions: Service Date/Time: Saturday, December 17, 2016 23:26 - CONCLUSION: 1. 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 No acute bony abnormality. Uli Wheeler MD Upper Extremity Ultrasound 12/17/16 0000 Signed Impressions: Service Date/Time: Sunday, December 18, 2016 00:29 - CONCLUSION: Normal examination. Uli Wheeler MD (Dorene Benitez) Physical Exam General General Appearance: Well Developed, No Acute Distress, Obese (Dorene Benitez) Eyes Eye Exam: Pupils Equal (EliDorene sunP) Ears & Nose Ears & Nose Exam: Nasal Mucosa [place] (Dorene Benitez. CADDY PACKER) Throat Throat Exam: Oral Mucosa [place] & Moist ([place],Susan M. CADDY PACKER) Neck Neck Exam: Neck Supple (Dorene Benitez M. CADDY PACKER) Pulmonary Resp Exam: Clear Bilaterally (Dorene Benitez. CADDY PACKER) Cardiology CV Exam: Good Perfusion (EliDorene sun. CADDY PACKER) Gastrointestinal/Abdomen GI Exam: Soft, Non-Distended (Eli,Susan M. CADDY PACKER) Musculoskeletal MS Exam: Joints Intact, Good Strength (Dorene Benitez. CADDY PACKER) Integumentary Skin Exam: Warm, Dry (Eli,Susan M. CADDY PACKER) Extremeties Extremities Exam: No Edema Extremeties Remarks OA lt. wrist, better (Dorene Benitez M. CADDY PACKER) Neurologic Neuro Exam: Alert, Awake, Moving All Extremities (Dorene Benitez. CADDY PACKER) Assessment/Plan Assessment/Plan Possible rheumatoid arthritis flareup pain management PO steroids improved lt. wrist and urticaria Supratherapeutic INR secondary to noncompliance with diet INR, 3.1 urticaria after transfusion possible reaction, had rash continue Benadryl PRN , resolving Hypertension, stable medical management COPD, stable medical management History DVT and PE, has IVC filter -continue coumadin, INR 3.1 Coumadin for DVT prophylaxis PPI for GI prophylaxis DC pending, probable today. D/W RN D/W pt and granddaughter D/W Dr. Miranda, seen on his behalf (Dorene BenitezP) Assessment/Plan pt seen and examined as above dw pt in detail labs reviewed still INR 3.1 will monitor cont current manamgent advised pt to inc activity (Rebeca Miranda MD) EliDorene StephanieLizy CHACONP Dec 20, 2016 10:51 Rebeca Miranda MD Dec 20, 2016 13:29
[2016-12-20] MEDS: SODIUM CHLOR 0.9% 1000 ML INJ 1,000 ML IV SCH (14:32)
[2016-12-21 00:55] VITALS: BP 127/69; PULSE 69; RESP 17; TEMP 98.2; O2SAT 96
[2016-12-21 04:55] VITALS: BP 108/61; PULSE 67; RESP 17; TEMP 98.2; O2SAT 93
[2016-12-21 08:00] VITALS: BP 118/71; PULSE 87; RESP 18; TEMP 97.1; O2SAT 100
[2016-12-21 08:02] LABS: INTERNATIONAL NORMALIZED RATIO 2.3 RATIO; PROTHROMBIN TIME - PATIENT 26.2 SEC (9.8-11.6)
[2016-12-21] MEDS: DOCUSATE SODIUM 50 MG/SENNA 8.6 MG TAB PO SCH (09:00)
[2016-12-21] MEDS: amLODIPine BESYLATE 5 MG TAB PO SCH (09:12)
[2016-12-21] MEDS: DICLOFENAC SODIUM 75 MG DELAYED RELEASE TAB PO SCH (09:12)
[2016-12-21] MEDS: SODIUM CHLORIDE 0.9% FLUSH 10 ML FLUSH IV FLUSH SCH (09:12)
[2016-12-21] MEDS: LOSARTAN 50 MG TAB PO SCH (09:12)
[2016-12-21] MEDS: predniSONE 10 MG TAB PO SCH (09:12)
[2016-12-21] MEDS: BUDESONIDE-FORMOTEROL 80/4.5 MCG INHALER INH SCH (09:13)
[2016-12-21] MEDS: CYCLOBENZAPRINE HCL 10 MG TAB PO SCH ×2 (09:13→14:28)
[2016-12-21] MEDS: PANTOPRAZOLE SOD 40 MG DELAYED RELEASE TAB PO SCH (09:13)
[2016-12-21] MEDS: SODIUM CHLOR 0.9% 1000 ML INJ 1,000 ML IV SCH (10:32)
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
[2016-12-21 12:00] VITALS: BP 155/88; PULSE 72; RESP 18; TEMP 98; O2SAT 93
--- NOTE | 2016-12-21 15:20 | HHI.DS ---
Discharge Summary Admission Date Dec 19, 2016 at 15:29 Admitting Diagnosis coumadin coagulopathy (1) Supratherapeutic INR ICD Codes: R79.1 - Abnormal coagulation profile Diagnosis: Principal Status: Acute (2) Left arm pain ICD Codes: M79.602 - Pain in left arm Diagnosis: Principal Status: Acute (3) HTN (hypertension) ICD Codes: I10 - Essential (primary) hypertension Diagnosis: Principal Status: Chronic (4) Rheumatoid arthritis flare ICD Codes: M06.9 - Rheumatoid arthritis, unspecified Diagnosis: Principal Status: Acute (5) Left wrist pain ICD Codes: M25.532 - Pain in left wrist Diagnosis: Secondary Status: Acute (6) COPD (chronic obstructive pulmonary disease) ICD Codes: J44.9 - Chronic obstructive pulmonary disease, unspecified Diagnosis: Secondary Status: Chronic (7) Obesity ICD Codes: E66.9 - Obesity, unspecified Diagnosis: Principal Status: Chronic (8) History of DVT (deep vein thrombosis) ICD Codes: Z86.718 - Personal history of other venous thrombosis and embolism Diagnosis: Secondary Status: Chronic (9) Hx pulmonary embolism ICD Codes: Z86.711 - Personal history of pulmonary embolism Diagnosis: Secondary Status: Chronic (10) S/P IVC filter ICD Codes: Z95.828 - Presence of other vascular implants and grafts Diagnosis: Secondary Status: Chronic (11) Transfusion reaction ICD Codes: T80.92XA - Unspecified transfusion reaction, initial encounter Diagnosis: Principal Brief History This is a pleasant 61-year-old female who presented to the emergency room with complaint of left wrist pain. Patient has significant past medical history diet -controlled diabetes, anxiety, depression, rheumatoid arthritis, DVT and PE, Maame filter, chronic anticoagulation therapy with Coumadin. Patient indicates that the pain started last evening, started on the wrist inner aspect and then moved up to her shoulder and chest wall, the pain to the wrist is worse with movement and with minimal touch. Denies any recent injury. However when she was in the [facility] October she had a bad fall and since then she's had a lot of joint pain especially in her shoulders and knees. She does have a history of rheumatoid arthritis for which she follows up regularly with Dr. Juarez. Dr. Diamond had ordered CT scans of her shoulders and knees as outpatient to evaluate, however the patient had not completed dose. She presented to the emergency room for further evaluation, had ultrasound of the left arm that was negative for DVT. Left wrist x-ray showed osteoarthritis. Laboratory workup was completed, patient was noted with supratherapeutic INR, initially 12.4. She did received vitamin K 5 mg PO and came down to 11. Patient was given FFP. Patient has an allergic reaction to FFP. Patient was put on a steroid. And also started on Benadryl. Patient did have some rash. Rash slowly improving and now completely normal. Her INR is 2.3. Discussed with primary care doctor. As the primary care doctor difficult to control her INR on Coumadin because of noncompliance to diet. And sometime questionably to medications. He will follow as outpatient. Advised patient to go to his office tomorrow morning for PT/INR. And further dosage as per primary care doctor. She understood very well. As patient is overall stable and good condition plan to discharge her home today CBC/BMP: 12/19/16 0711 12/19/16 0711 Significant Findings Laboratory Tests Test 12/18/16 16:59 12/19/16 01:26 12/19/16 07:11 12/20/16 08:41 Prothrombin Time 108.8 SEC (9.8-11.6) 34.8 SEC (9.8-11.6) 35.6 SEC (9.8-11.6) Prothromb Time International Ratio 9.0 RATIO Urine Turbidity HAZY (CLEAR) Urine Bacteria RARE /hpf (NONE) Urine Mucus FEW /lpf (OCC) Neutrophils (%) (Auto) 72.3 % (16.0-70.0) Monocytes (%) (Auto) 8.6 % (0.0-8.0) Estimat Glomerular Filtration Rate 84 ML/MIN (>89) Test 12/21/16 06:27 Prothrombin Time 26.2 SEC (9.8-11.6) Pt Condition on Discharge: Good Discharge Disposition: Discharge Home Discharge Instructions DIET: Follow Instructions for: Heart Healthy Diet Activities you can perform: Weight Bearing as Kaleb Follow up Referrals: PCP Follow-up - 2-3 Days Continued Medications: Albuterol 8.5 GM Inh (Proair Hfa 8.5 GM Inh) 90 Mcg/Act Aer 1 PUFF INH Q4H PRN for SHORTNESS OF BREATH, #1 INHALER 0 Refills 108 mcg/actuation Amlodipine (Amlodipine) 5 Mg Tab 5 MG PO DAILY for Blood Pressure Management, #30 TAB 0 Refills Cyclobenzaprine (Flexeril) 10 Mg Tab 10 MG PO TID for Muscle Spasm, #90 TAB 0 Refills Diclofenac (Zorvolex) 35 Mg Cap 75 MG PO DAILY for Pain Management, CAP 0 Refills Fluticasone-Salmeterol Inh (Advair Diskus Inh) 100-50 Mcg/Blist Aer 1 PUFF INH BID for Asthma Management, #1 INHALER 0 Refills Rinse mouth after use. Furosemide (Furosemide) 40 Mg Tab 40 MG PO DAILY, #30 TAB 0 Refills Losartan (Losartan) 100 Mg Tab 100 MG PO DAILY for Blood Pressure Management, #30 TAB 0 Refills Pantoprazole (Pantoprazole) 40 Mg Tab 40 MG PO DAILY for Reflux, #30 TAB 0 Refills Warfarin (Warfarin) 5 Mg Tab 5 MG PO DAILY for Blood Clot Prevention, #30 TAB 0 Refills Zolpidem (Zolpidem) 10 Mg Tab 10 MG PO HS PRN for INSOMNIA, TAB 0 Refills Discontinued Medications: Zolpidem (Ambien) 10 Mg Tab 10 MG PO HS PRN for INSOMNIA, TAB 0 Refills Rebeca Miranda MD Dec 21, 2016 15:20
[2016-12-21] MEDS ORDERED: WARFARIN SOD 4 MG TAB PO SCH (16:00)
== END 2016-12-21 17:07 | disposition home or self-care (01) | DRG 948 ==
LOC: NEPC 22:50 → NEDA 12-18 02:39 → N06B 12-18 05:15 → OBSVTOIN 12-19 15:29
PROVIDERS: ADMIT Specialist; ATTEND Specialist
PROC: 30233K1 Transfusion of Nonautologous Frozen Plasma into Peripheral Vein, Percutaneous Approach (ICD-10-PCS; principal; 2016-12-18)
DX: R79.1 Abnormal coagulation profile (principal); Z68.43 Body mass index [BMI] 50.0-59.9, adult; Z91.19 Patient's noncompliance with other medical treatment and regimen; E66.9 Obesity, unspecified; T80.89XA Other complications following infusion, transfusion and therapeutic injection, initial encounter; L50.9 Urticaria, unspecified; Y84.8 Other medical procedures as the cause of abnormal reaction of the patient, or of later complication, without mention of misadventure at the time of the procedure; I10 Essential (primary) hypertension; M06.9 Rheumatoid arthritis, unspecified; M79.602 Pain in left arm; M25.532 Pain in left wrist; J44.9 Chronic obstructive pulmonary disease, unspecified; Z86.718 Personal history of other venous thrombosis and embolism; Z86.711 Personal history of pulmonary embolism; Z79.01 Long term (current) use of anticoagulants; E11.9 Type 2 diabetes mellitus without complications; F41.8 Other specified anxiety disorders; G47.33 Obstructive sleep apnea (adult) (pediatric); Z87.11 Personal history of peptic ulcer disease
CPT/HCPCS: 36430; 73110; 80048; 81001; 84484; 84550; 85025; 85610; 86078; 86850; 86880; 86900; 86901; 86927; 93005; 93971; 96374; G0378; J1200; J7030; J7512; P9017

== ENCOUNTER 2018-02-23 01:25 | Inpatient (IN) ==
[2018-02-23] MEDS ORDERED: Adenosine Inj 6 MG/2 ML Syringe IV.PUSH ONE ×3 (01:36→01:46)
--- NOTE | 2018-02-23 01:48 | ED ---
HPI General Chief complaint: Arrhythmia / Palpitations Stated complaint: High BP Time Seen by Provider: 02/23/18 01:46 Source: patient Mode of arrival: ambulatory Limitations: no limitations History of Present Illness HPI narrative: 62-year-old female with history of PE on a NOAC that she cannot recall the name of, hypertension, hyperlipidemia, here by private vehicle for evaluation of elevated heart rate, shortness of breath, generalized malaise. Symptoms started shortly prior to arriving in the emergency department. She denies chest pain. No fevers or recent illness. No paresthesias or motor. No new medications or medication changes. Related Data Previous Rx's Medication Instructions Recorded apixaban 2.5 mg PO BID #60 tab 12/27/17 fluticasone [Flonase Allergy 1 spray EACH NARE BID #19.8 g 12/27/17 Relief] Allergies Allergy/AdvReac Type Severity Reaction Status Date / Time ibuprofen Allergy Severe ITCHING Unverified 11/29/16 22:41 Review of Systems ROS: all other systems reviewed are negative PMFSH Social History Social History Substance History: No History of Abuse Second Hand Smoke Exposure: No Smoking Status: Never smoker How Often Do You Have a Drink Containing Alcohol: Never Recent Out of Country Travel within the Last 8 Weeks: No Immunization History Tetanus Immunization: >5 Years Exam Narrative Exam Narrative: GENERAL: Well-developed, well-nourished, awake, alert, overweight, appears anxious SKIN: Focused skin assessment warm/dry. HEAD: Atraumatic. Normocephalic. EYES: Pupils equal and round. No scleral icterus. No injection or drainage. ENT: No nasal bleeding or discharge. Mucous membranes pink and moist. NECK: Trachea midline. No JVD. CARDIOVASCULAR: Tachycardic, rate 170, regular. RESPIRATORY: No accessory muscle use. Clear to auscultation. Breath sounds equal bilaterally. GASTROINTESTINAL: Abdomen soft, non-tender, nondistended. MUSCULOSKELETAL: No obvious deformities. No clubbing. No cyanosis. No edema. NEUROLOGICAL: Awake and alert. No obvious cranial nerve deficits. Motor grossly within normal limits. Normal speech. PSYCHIATRIC: Appropriate mood and affect; insight and judgment normal. Course Initial Documented Vital Signs Temperature 98.1 F 02/23/18 01:33 Pulse Rate 180 H 02/23/18 01:33 Respiratory Rate 32 H 02/23/18 01:33 Blood Pressure 155/86 H 02/23/18 01:33 Pulse Oximetry 94 L 02/23/18 01:33 Last Documented Vital Signs Temperature 98.1 F 02/23/18 01:33 Pulse Rate 88 02/23/18 01:44 Respiratory Rate 28 H 02/23/18 01:44 Blood Pressure 142/92 H 02/23/18 01:44 Pulse Oximetry 96 02/23/18 01:44 Critical Care Time Critical Care Time: Yes Total Critical Care Time: 35 Attestation: Aggregate critical care time was 35 minutes. Time to perform other separately billable procedures was not included in the critical care time. My time did not include minutes spent treating any other patients simultaneously or on activities that did not directly contribute to the patient's treatment. The services I provided to this patient were to treat and/or prevent clinically significant deterioration that could result in: , cardiac arrest, worsening clinical condition, permanent disability I provided critical care services requiring my management, as noted below: Chart data review, documentation time, medication orders and management, vital sign assessments/reviewing monitor data, ordering and reviewing lab tests, ordering and interpreting/reviewing x-rays and diagnostic studies, care of the patient and discussion of the patient with the admitting physicians. Medical Decision Making MDM Narrative Medical decision making narrative: Patient presents with a heart rate in the 170s. EKG shows SVT with narrow complexes. Blood pressure was 150/80. Vagal maneuvers were attempted at first by having the patient bear down as well as blow into a straw, however her heart rate remained unchanged. She was provided 6 mg of adenosine, and converted to normal sinus rhythm. Repeat EKG shows sinus , rate 98, normal axis, normal intervals, no acute ischemic abnormality. CBC and CMP were reviewed and are essentially unremarkable. TSH is 3. Cardiac enzymes are negative. Chest x-ray read as negative exam. On reassessment she still feels somewhat weak/lightheaded. Her heart rate is in the 80s, normal sinus. Initial EKG was SVT and showed moderate ST depressions which were likely rate related. The patient is 62 years old and has no history of SVT. She has no known history of cardiac disease, however has had a PE in the past and is on apixaban. Given her age, and first episode of SVT, the patient will be admitted for further cardiac evaluation. She is amenable with this plan. Case discussed with hospitalist Dr. Marley who will admit the patient to his service. Medical Screen Exam Complete: Yes Emergency Medical Condition: Yes Differential Diagnosis Differential Diagnosis: SVT, metabolic abnormality, PE, hypothyroid Lab Data Result diagrams: 02/23/18 01:45 02/23/18 01:45 Lab Results 02/23/18 02/23/18 02/23/18 Range/Units 01:45 01:45 01:45 WBC 9.7 (4.0-11.0) th/mm3 RBC 5.54 H (4.00-5.30) mil/mm3 Hgb 15.5 H (11.6-15.3) gm/dL Hct 47.9 H (35.0-46.0) % MCV 86.4 (80.0-100.0) fL MCH 27.9 (27.0-34.0) pg MCHC 32.3 (32.0-36.0) % RDW 15.2 (11.6-17.2) % Plt Count 256 (150-450) th/mm3 MPV 11.0 (7.0-11.0) fL Neut % (Auto) 56.7 (16.0-70.0) % Lymph % (Auto) 31.2 (9.0-44.0) % Haines % (Auto) 8.6 H (0.0-8.0) % Eos % (Auto) 2.5 (0.0-4.0) % Baso % (Auto) 1.0 (0.0-2.0) % Neut # (Auto) 5.5 (1.8-7.7) th/mm3 Lymph # (Auto) 3.0 (1.0-4.8) th/mm3 [place]aines # (Auto) 0.8 (0.0-0.9) th/mm3 Eos # (Auto) 0.2 (0.0-0.4) th/mm3 Baso # (Auto) 0.1 (0.0-0.2) th/mm3 WBC Differential . Differential Comment Auto diff final PT 10.0 (9.8-11.6) sec INR 1.0 Ratio APTT 30.7 (23.4-31.7) sec Sodium 143 (136-145) meq/L Potassium 4.5 (3.5-5.1) meq/L Chloride 106 (98-107) meq/L Carbon Dioxide 27.6 (21.0-32.0) meq/L Anion Gap 9 (5-15) meq/L BUN 15 (7-18) mg/dL Creatinine 1.16 H (0.50-1.00) mg/dL Estimated GFR 47 L (>89) mL/min Random Glucose 121 H (74-106) mg/dL Calcium 8.8 (8.5-10.1) mg/dL Total Bilirubin 0.2 (0.2-1.0) mg/dL AST 15 (15-37) U/L ALT 22 (10-53) U/L Alkaline Phosphatase 118 H (45-117) U/L Total Creatine Kinase 78 (26-192) U/L Troponin I Less than 0.02 L (0.02-0.05) ng/mL Total Protein 8.1 (6.4-8.2) g/dL Albumin 3.5 (3.4-5.0) g/dL TSH 3.000 (0.358-3.740) uIU/mL Imaging Data Radiologist's impression: Chest X-Ray 02/23/18 01:46 CONCLUSION: Negative examination. Discharge Plan Discharge Disposition Patient Disposition: 30 Still Patient Discharge Condition Condition: Stable Discharge Details Diagnosis: SVT (supraventricular tachycardia) Physicians Team ED Provider: Pacheco Jackson Primary Care Provider: Edgard Corral Rxs /Orders / Referrals /Forms Prescriptions: No Action fluticasone [Flonase Allergy Relief] 50 mcg/actuation spray,suspension 1 spray EACH NARE BID Qty: 19.8 RF: 0 apixaban 2.5 mg tablet 2.5 mg PO BID Qty: 60 RF: 0 Status ED Status: With Doctor
[2018-02-23 01:58] LABS: Baso # (Auto) 0.1 th/mm3 (0.0-0.2); Eos # (Auto) 0.2 th/mm3 (0.0-0.4); Eos % (Auto) 2.5 % (0.0-4.0); Hematocrit 47.9 % (35.0-46.0); Hemoglobin 15.5 gm/dL (11.6-15.3); Lymph % (Auto) 31.2 % (9.0-44.0); Mean Corpuscular HGB Conc 32.3 % (32.0-36.0); Mean Corpuscular Hemoglobin 27.9 pg (27.0-34.0); Mean Corpuscular Volume 86.4 fL (80.0-100.0); Mono # (Auto) 0.8 th/mm3 (0.0-0.9); Mono % (Auto) 8.6 % (0.0-8.0); Neut # (Auto) 5.5 th/mm3 (1.8-7.7); Neut % (Auto) 56.7 % (16.0-70.0); Platelet Count 256 th/mm3 (150-450); Red Blood Count 5.54 mil/mm3 (4.00-5.30); Red Cell Distribution Width 15.2 % (11.6-17.2); White Blood Count 9.7 th/mm3 (4.0-11.0)
--- NOTE | 2018-02-23 02:17 | XR ---
EXAM DATE: 02/23/2018 1:58 AM EST AGE/SEX: 62 years / Female INDICATIONS: Chest pain. CLINICAL DATA: This is the patient's initial encounter. Patient reports that signs and symptoms have been present for 1 day and indicates a pain score of 0/10. MEDICAL/SURGICAL HISTORY: . Hypertension. Diabetes mellitus type II. Pulmonary Embolism None. COMPAR[place]: [facility] [place]&L[place], 12/27/[place]. . FINDINGS: A single AP view of the chest demonstrates the lungs to be symmetrically aerated without evidence of mass, infiltrate or effusion. The cardiomediastinal contours are unremarkable. Osseous structures a re intact. CONCLUSION: Negative examination. Electronically signed by: Josef Javed MD 02/23/2018 2:15 AM EST
[2018-02-23 02:21] LABS: Activated Partial Thrombo Time 30.7 sec (23.4-31.7)
[2018-02-23 02:28] LABS: Alkaline Phosphatase 118 U/L (45-117); Total Protein 8.1 g/dL (6.4-8.2)
[2018-02-23 02:29] LABS: Alanine Aminotransferase 22 U/L (10-53); Albumin 3.5 g/dL (3.4-5.0); Anion Gap 9 meq/L (5-15); Aspartate Aminotransferase 15 U/L (15-37); Blood Urea Nitrogen 15 mg/dL (7-18); Calcium 8.8 mg/dL (8.5-10.1); Carbon Dioxide 27.6 meq/L (21.0-32.0); Chloride 106 meq/L (98-107); Glomerular Filtration Rate 47 mL/min (>89); Glucose,Random 121 mg/dL (74-106); Potassium 4.5 meq/L (3.5-5.1); Sodium 143 meq/L (136-145)
[2018-02-23 02:33] LABS: Creatine Kinase 78 U/L (26-192)
[2018-02-23] MEDS ORDERED: Bisacodyl 10 MG Supp RECTAL PRN (03:49)
[2018-02-23] MEDS: Metoprolol Tartrate 25 MG Tablet PO SCH ×2 (04:51→20:09)
[2018-02-23] MEDS ORDERED: Influenza (Quadrivalent) Vaccine 0.5 ML Syringe IM ONE (08:30)
--- NOTE | 2018-02-23 09:44 | P.HPIM ---
History of Present Illness [facility] Primary [facility] Physician: Edgard Corral MD Chief Complaint: Shortness of breath, palpitations History of Present Illness: 62-year-old female with a medical history significant for PE, hypertension, hyperlipidemia presented to the emergency room with complaint of heart palpitations, shortness of breath, and generalized malaise. Workup in the emergency room revealed the patient to be in SVT. She was given adenosine and her heart rate normalized. In addition, she denies chest pain or shortness of breath. She was started on metoprolol and heart rate currently stable. - Diagnosis (1) SVT (supraventricular tachycardia) Inpatient Certification: I certify that the inpatient services were ordered in accordance with Medicare regulations governing the order. This includes certification that hospital inpatient services are reasonable and necessary and in the case of services not specified as inpatient-only under 42 CFR 419.22(n), that they are appropriately provided as inpatient services in accordance to with the 2-midnight benchmark under 43 CFR 412.3(e) Estimated Total Length of Stay (Days): 2 Plans for Post Hospital Care: Home Review of Systems All other systems reviewed negative except as stated in HPI PMFSH - History History Provided By: Patient - Medical History Medical History: Medical History (Last Reviewed 02/23/18 @ 13:10 by Lourdes Negron MD) Asthma Embolism H/O: hysterectomy HTN (hypertension) - Surgical History Surgical History: Surgical History (Last Reviewed 02/23/18 @ 13:10 by Lourdes Negron MD) Hx of cholecystectomy - Family History Family History: Family History (Last Updated 02/23/18 @ 13:10 by Lourdes Negron MD) Other Family history non-contributory - Social History I have reviewed the patient's Social History: Yes - Tobacco History Second Hand Smoke Exposure: No Smoking Status: Never smoker - Alcohol History How Often Do You Have a Drink Containing Alcohol: Never - Substance Use History Substance History: No History of Abuse - Travel History Recent Travel in the [place] Within the Last 8 Weeks: No Recent Travel Out of the Country Within the Last 8 Weeks: No - Immunization History Tetanus Immunization: Unsure Hx Influenza Vaccine This Season: No Medications and Allergies Active Medications: Active Medications Al Hydroxide/Mg Hydroxide (Milk Of Magnvipin Liq) 30 ml PO Q12H PRN PRN Reason: Mild Constipation Apixaban (Eliquis) 2.5 mg PO BID [facility] Bisacodyl (Dulcolax Supp) 10 mg RECTAL DAILY PRN PRN Reason: SEVERE CONSITIPATION Lactulose (Lactulose Liq) 30 ml PO DAILY PRN PRN Reason: SEVERE CONSITIPATION Metoprolol Tartrate (Lopressor) 25 mg PO BID [facility] Last Admin: 02/23/18 04:51 Dose: 25 mg Sennosides (Senokot) 17.2 mg PO Q12H PRN PRN Reason: Moderate Constipation Sodium Chloride (Ns Flush) 2 ml IV.FLUSH UNSCH PRN PRN Reason: FLUSH AFTER USING IV ACCESS Allergies Allergy/AdvReac Type Severity Reaction Status Date / Time ibuprofen Allergy Severe ITCHING Unverified 11/29/16 22:41 Exam Vital signs: Vital Signs 02/23/18 01:33 02/23/18 01:44 02/23/18 01:46 Temperature 98.1 F Pulse Rate 180 H 88 Respiratory Rate 32 H 28 H Blood Pressure 155/86 H 142/92 H Pulse Oximetry 94 L 96 98 02/23/18 04:30 02/23/18 07:46 02/23/18 08:00 Temperature Pulse Rate 70 54 L 58 L Respiratory Rate 20 20 Blood Pressure 158/76 H 172/93 H Pulse Oximetry 97 97 Intake & Output 02/22/18 02/23/18 02/23/18 18:59 06:59 18:59 Weight 132.5 kg Other: Date of Last Bowel Movement 02/22/18 Weight On Admission 132.5 kg Narrative: CONSTITUTIONAL/GENERAL: Obese female in no apparent distress. Vital signs reviewed SKIN: No jaundice, rashes, or concerning lesions. Not diaphoretic. HEAD: Atraumatic. Normocephalic. EYES: Pupils equal and round and reactive. Extra ocular motions are intact. No scleral icterus. No injection or drainage. ENT: Hearing grossly normal. Nose without drainage. Throat without visible erythema, exudates, masses, or lesions. NECK: Trachea midline. Neck is supple, non-tender. No palpable thyroid enlargement or nodularity. CARDIOVASCULAR: Normal rate and regular rhythm without murmurs, gallops, or rubs. No JVD. Peripheral pulses 2+ and symmetric. RESPIRATORY/CHEST: Symmetric, unlabored respirations. Breath sounds equal and clear to auscultation bilaterally. No wheezes, crackles, rales, or rhonchi. GASTROINTESTINAL: Abdomen soft, non-tender, non-distended. No hepato- splenomegaly, or palpable masses. No guarding. Bowel sounds present. MUSCULOSKELETAL: Extremities without clubbing, cyanosis, or edema. No joint tenderness or effusion noted. No calf tenderness. No mottling or clubbing. NEUROLOGICAL: Awake and alert. Motor and sensory grossly within normal limits. Follows commands. Move all extremities spontaneously. No focal deficits. PSYCHIATRIC: No obvious mood problems. No apparent hallucinations or other psychotic thought process. Results - Labs CBC & Chem 7: 02/23/18 01:45 02/23/18 01:45 Labs: Short CBC 02/23/18 Range/Units 01:45 WBC 9.7 (4.0-11.0) th/mm3 Hgb 15.5 H (11.6-15.3) gm/dL Hct 47.9 H (35.0-46.0) % Plt Count 256 (150-450) th/mm3 BMP 02/23/18 01:45 Sodium 143 Potassium 4.5 Chloride 106 Carbon Dioxide 27.6 BUN 15 Creatinine 1.16 H Calcium 8.8 Cardiac Enzymes 02/23/18 Range/Units 01:45 Total Creatine Kinase 78 (26-192) U/L Troponin I Less than 0.02 L (0.02-0.05) ng/mL Liver Function 02/23/18 Range/Units 01:45 Total Bilirubin 0.2 (0.2-1.0) mg/dL AST 15 (15-37) U/L ALT 22 (10-53) U/L Alkaline Phosphatase 118 H (45-117) U/L Albumin 3.5 (3.4-5.0) g/dL - Imaging Impressions Chest X-Ray 02/23/18 01:46 CONCLUSION: Negative examination. Caprini VTE Risk Assessment Caprini VTE Risk Assessment: Moderate/High Risk (score >= 2) Caprini Risk Assessment Model: Point Value = 1 Point Value = 2 Point Value = 3 Point Value = 5 Age 41-60 Minor surgery BMI > 25 kg/m2 Swollen legs Varicose veins or History of unexplained or recurrent spontaneous Oral contraceptives or hormone replacement Sepsis (< 1 month) Serious lung disease, including pneumonia (< 1 month) Abnormal pulmonary function Acute myocardial infarction Congestive heart failure (< 1 month) History of inflammatory bowel disease Medical patient at bed rest Age 61-74 Arthroscopic surgery Major open surgery (> 45 min) Laparoscopic surgery (> 45 min) Malignancy Confined to bed (> 72 hours) Immobilizing plaster cast Central venous access Age >= 75 History of VTE Family history of VTE Factor V Leiden Prothrombin [id number] Lupus anticoagulant Anticardiolipin antibodies Elevated serum homocysteine Heparin-induced thrombocytopenia Other congenital or acquired thrombophilia Stroke (< 1 month) Elective arthroplasty Hip, pelvis, or leg fracture Acute spinal cord injury (< 1 month) Prophylaxis Regimen: Total Risk Factor Score Risk Level Prophylaxis Regimen 0-1 Low Early ambulation 2 Moderate Order ONE of the following: *Sequential Compression Device (SCD) *Heparin 5000 units SQ BID 3-4 Higher Order ONE of the following medications: *Heparin 5000 units SQ TID *Enoxaparin/Lovenox 40 mg SQ daily (WT < 150 kg, CrCl > 30 mL/min) *Enoxaparin/Lovenox 30 mg SQ daily (WT < 150 kg, CrCl > 10-29 mL/min) *Enoxaparin/Lovenox 30 mg SQ BID (WT < 150 kg, CrCl > 30 mL/min) AND/OR *Sequential Compression Device (SCD) 5 or more Highest Order ONE of the following medications: *Heparin 5000 units SQ TID (Preferred with Epidurals) *Enoxaparin/Lovenox 40 mg SQ daily (WT < 150 kg, CrCl > 30 mL/min) *Enoxaparin/Lovenox 30 mg SQ daily (WT < 150 kg, CrCl > 10-29 mL/min) *Enoxaparin/Lovenox 30 mg SQ BID (WT < 150 kg, CrCl > 30 mL/min) AND *Sequential Compression Device (SCD) Assessment and Plan - Assessment (1) SVT (supraventricular tachycardia) Code(s): I47.1 - Supraventricular tachycardia Status: Acute - Plan 62-year-old female with: Symptomatic SVT: Patient was given adenosine and converted to sinus rhythm. She was started on metoprolol. - Continue to monitor on telemetry - Cardiology consulted for assistance History of PE: -Resume Eliquis. GI prophylaxis: Stool softener PRN constipation. DVT PPx: On Eliquis H&P: Quality - VTE Deep Vein Thrombosis/Pulmonary Embolism Present on Admission: No
--- NOTE | 2018-02-23 13:59 | MB ---
cc: Reymundo Willis MD DATE: 02/23/2018 HISTORY OF PRESENT ILLNESS: Svetlana is a very pleasant 62-year-old lady who presents with multiple complaints including palpitations, dyspnea on exertion with chest tightness with minimal exertion. Currently, resting in bed, no acute distress. Denies ongoing chest pain, fevers, chills, cough, GI or bleeding, PND, orthopnea, syncope or dizziness. PERTINENT MEDICAL HISTORY: Per history of present illness. She has a history of asthma, embolism, hysterectomy, hypertension, cholecystectomy. ALLERGIES: IBUPROFEN. SOCIAL HISTORY: Denies tobacco use, denies alcohol use. MEDICATIONS: In the hospital: 1. Eliquis 2.5 mg b.i.d. 2. Metoprolol 25 mg p.o. b.i.d. PHYSICAL EXAMINATION: VITAL SIGNS: Blood pressure 159/96, pulse 60, respiratory rate 18, sats 97% on room air, temperature 98.1. GENERAL: She is alert and oriented x3, in no acute distress. NECK: Supple. No JVD. No bruit. CARDIOVASCULAR: S1, S2. No murmurs, rubs or gallops. LUNGS: Clear to auscultation bilaterally. ABDOMEN: Soft, nontender, nondistended with positive bowel sounds. EXTREMITIES: No lower extremity edema. LABORATORY DATA: Initial EKG shows SVT at a rate of 150 beats per minute with no ST-T wave changes. Second EKG shows normal sinus rhythm at 98 beats per minute with normal intervals. Her chest x-ray negative examination: White count 9.7, hemoglobin 15.5, hematocrit 47.9, platelet count 256. INR is 1.0. Sodium 143, potassium 4.5, chloride 106, bicarbonate 27.6, BUN 15, creatinine 1.16. Troponin less than 0.02. LFTs normal. DIAGNOSES: 1. Supraventricular tachycardia. 2. History of pulmonary embolus. 3. Dyspnea on exertion. 4. Congestive heart failure. 5. Unstable angina. DISCUSSION: At this point in time, the patient is being appropriately treated with Eliquis for her DVT, PE, and Lopressor for the SVT. She has had no further events. I do think she needs a 2-D echo and we will also check a BNP to determine more objectively the degree of LV dysfunction she may or may not have. Further recommendations based on the results of the 2-D echo and her BNP. MD GUNNER King/ronaldo , 01:05 PM , 01:13 PM
--- NOTE | 2018-02-23 15:59 | ECG ---
Date Performed: 02/23/2018 Time Performed: 01:41:06 PTAGE: 62 years EKG: Sinus rhythm Compared to previous tracing, the Supraventricular tachycardia is no longer present NORMAL ECG PREVIOUS TRACING : 02/23/2018 01.34 DOCTOR: Breanna Lopez Interpretating Date/Time 02/23/2018 15:57:42
--- NOTE | 2018-02-23 15:59 | ECG ---
Date Performed: 02/23/2018 Time Performed: 01:34:50 PTAGE: 62 years EKG: SUPRAVENTRICULAR TACHYCARDIA MODERATE ST DEPRESSION Compared to previous tracing, there is now evidence of Supraventricular tachycardia ABNORMAL ECG NO PREVIOUS TRACING DOCTOR: Breanna Lopez Interpretating Date/Time 02/23/2018 15:57:26
--- NOTE | 2018-02-23 15:59 | ECG ---
Date Performed: 02/23/2018 Time Performed: 05:34:44 PTAGE: 62 years EKG: Sinus rhythm Since the previous tracing, no significant change noted NORMAL ECG PREVIOUS TRACING : 12/27/2017 19.13 DOCTOR: Breanna Lopez Interpretating Date/Time 02/23/2018 15:57:51
[2018-02-24 06:04] LABS: Baso # (Auto) 0.1 th/mm3 (0.0-0.2); Baso % (Auto) 1.2 % (0.0-2.0); Eos # (Auto) 0.3 th/mm3 (0.0-0.4); Eos % (Auto) 4.6 % (0.0-4.0); Hematocrit 42.1 % (35.0-46.0); Hemoglobin 13.8 gm/dL (11.6-15.3); Lymph # (Auto) 1.8 th/mm3 (1.0-4.8); Lymph % (Auto) 28.1 % (9.0-44.0); Mean Corpuscular HGB Conc 32.8 % (32.0-36.0); Mean Corpuscular Hemoglobin 28.2 pg (27.0-34.0); Mean Corpuscular Volume 85.9 fL (80.0-100.0); Mean Platelet Volume 10.7 fL (7.0-11.0); Mono # (Auto) 0.6 th/mm3 (0.0-0.9); Mono % (Auto) 8.8 % (0.0-8.0); Neut # (Auto) 3.7 th/mm3 (1.8-7.7); Neut % (Auto) 57.3 % (16.0-70.0); Platelet Count 206 th/mm3 (150-450); Red Blood Count 4.91 mil/mm3 (4.00-5.30); White Blood Count 6.5 th/mm3 (4.0-11.0)
[2018-02-24 06:34] LABS: Albumin 3.1 g/dL (3.4-5.0); Anion Gap 7 meq/L (5-15); Aspartate Aminotransferase 13 U/L (15-37); Blood Urea Nitrogen 13 mg/dL (7-18); Calcium 8.7 mg/dL (8.5-10.1); Carbon Dioxide 27.7 meq/L (21.0-32.0); Chloride 107 meq/L (98-107); Glomerular Filtration Rate 70 mL/min (>89); Glucose,Random 93 mg/dL (74-106); Potassium 4.1 meq/L (3.5-5.1); Sodium 142 meq/L (136-145)
[2018-02-24 06:36] LABS: Alanine Aminotransferase 17 U/L (10-53)
[2018-02-24 06:37] LABS: Alkaline Phosphatase 106 U/L (45-117)
--- NOTE | 2018-02-24 08:11 | P.PNCA ---
Subjective Interval history: alert in nad Medications and Allergies Active Medications: Active Medications Al Hydroxide/Mg Hydroxide (Milk Of Magnesia Liq) 30 ml PO Q12H PRN PRN Reason: Mild Constipation Apixaban (Eliquis) 2.5 mg PO BID [facility] Last Admin: 02/23/18 20:09 Dose: 2.5 mg Bisacodyl (Dulcolax Supp) 10 mg RECTAL DAILY PRN PRN Reason: SEVERE CONSITIPATION Lactulose (Lactulose Liq) 30 ml PO DAILY PRN PRN Reason: SEVERE CONSITIPATION Metoprolol Tartrate (Lopressor) 25 mg PO BID [facility] Last Admin: 02/23/18 20:09 Dose: 25 mg Sennosides (Senokot) 17.2 mg PO Q12H PRN PRN Reason: Moderate Constipation Sodium Chloride (Ns Flush) 2 ml IV.FLUSH UNSCH PRN PRN Reason: FLUSH AFTER USING IV ACCESS Allergies Allergy/AdvReac Type Severity Reaction Status Date / Time ibuprofen Allergy Severe ITCHING Unverified 11/29/16 22:41 Physical Exam Vital signs: Vital Signs 02/23/18 09:00 02/23/18 10:00 02/23/18 11:00 Temperature Pulse Rate 53 L 60 64 Respiratory Rate Blood Pressure Pulse Oximetry 02/23/18 12:00 02/23/18 13:00 02/23/18 14:00 Temperature Pulse Rate 60 64 60 Respiratory Rate 18 Blood Pressure 159/96 H Pulse Oximetry 97 02/23/18 15:00 02/23/18 16:00 02/23/18 17:00 Temperature Pulse Rate 64 60 64 Respiratory Rate 20 Blood Pressure 140/89 Pulse Oximetry 02/23/18 17:03 02/23/18 18:00 02/23/18 19:00 Temperature Pulse Rate 66 61 Respiratory Rate Blood Pressure Pulse Oximetry 97 02/23/18 20:00 02/23/18 21:00 02/23/18 22:00 Temperature 98.6 F Pulse Rate 61 58 L 57 L Respiratory Rate 20 Blood Pressure 150/89 H Pulse Oximetry 97 02/23/18 23:00 02/24/18 00:00 02/24/18 01:00 Temperature 98.2 F Pulse Rate 57 L 58 L 57 L Respiratory Rate 18 Blood Pressure 148/92 H Pulse Oximetry 97 02/24/18 02:00 02/24/18 03:00 02/24/18 04:00 Temperature 97.9 F Pulse Rate 58 L 59 L 57 L Respiratory Rate 18 Blood Pressure 148/92 H Pulse Oximetry 96 02/24/18 05:00 02/24/18 06:00 Temperature Pulse Rate 56 L 58 L Respiratory Rate Blood Pressure Pulse Oximetry Intake & Output 02/23/18 02/24/18 02/24/18 18:59 06:59 18:59 Intake Total 440 / 440 Output Total 600 / 600 Balance -160 / -160 Weight 132.5 kg 132.6 kg Intake: Oral 440 / 440 Output: Urine 600 / 600 Other: Date of Last Bowel Movement 02/22/18 02/22/18 # Bowel Movements 0 Weight On Admission 132.5 kg - Constitutional no acute distress - Routine HEENT Exam Head: Present: normocephalic - Routine Neck Exam Present: supple - Routine Respiratory Exam Present: CTA bilaterally - Routine Cardiovascular Exam Present: S1, S2 - Routine Abdominal Exam Present: soft - Routine Extremities Exam Comments: no juan - Routine Neurological Exam Present: alert Results 02/24/18 04:35 02/24/18 04:35 Cardiac Enzymes 02/23/18 02/24/18 02/24/18 Range/Units 01:45 04:35 04:35 AST 15 13 L (15-37) U/L Troponin I Less than 0.02 L (0.02-0.05) ng/mL B-Natriuretic Peptide 199 H (0-100) pg/mL Coagulation 02/23/18 02/24/18 Range/Units 01:45 04:35 PT 10.0 (9.8-11.6) sec APTT 30.7 (23.4-31.7) sec B-Natriuretic Peptide 199 H (0-100) pg/mL CBC 02/23/18 02/24/18 Range/Units 01:45 04:35 WBC 9.7 6.5 (4.0-11.0) th/mm3 RBC 5.54 H 4.91 (4.00-5.30) mil/mm3 Hgb 15.5 H 13.8 (11.6-15.3) gm/dL Hct 47.9 H 42.1 (35.0-46.0) % Plt Count 256 206 (150-450) th/mm3 Neut # (Auto) 5.5 3.7 (1.8-7.7) th/mm3 Lymph # (Auto) 3.0 1.8 (1.0-4.8) th/mm3 [place] # (Auto) 0.8 0.6 (0.0-0.9) th/mm3 Eos # (Auto) 0.2 0.3 (0.0-0.4) th/mm3 Baso # (Auto) 0.1 0.1 (0.0-0.2) th/mm3 Comprehensive Metabolic Panel 02/23/18 02/24/18 Range/Units 01:45 04:35 Sodium 143 142 (136-145) meq/L Potassium 4.5 4.1 (3.5-5.1) meq/L Chloride 106 107 (98-107) meq/L Carbon Dioxide 27.6 27.7 (21.0-32.0) meq/L BUN 15 13 (7-18) mg/dL Creatinine 1.16 H 0.83 (0.50-1.00) mg/dL Calcium 8.8 8.7 (8.5-10.1) mg/dL AST 15 13 L (15-37) U/L ALT 22 17 (10-53) U/L Alkaline Phosphatase 118 H 106 (45-117) U/L Total Protein 8.1 7.0 D (6.4-8.2) g/dL Albumin 3.5 3.1 L (3.4-5.0) g/dL Intake and Output 02/23/18 02/24/18 02/24/18 22:59 06:59 14:59 Intake Total 200 / 200 240 / 240 Output Total 600 / 600 Balance 200 / 200 -360 / -360 Intake: Oral 200 / 200 240 / 240 Output: Urine 600 / 600 Other: Date of Last Bowel Movement 02/22/18 # Bowel Movements 0 Weight 132.6 kg - Imaging and Cardiology Imaging: Impressions Chest X-Ray 02/23/18 01:46 CONCLUSION: Negative examination. Assessment and Plan - Assessment (1) CHF (congestive heart failure) Code(s): I50.9 - Heart failure, unspecified Status: Acute (2) Unstable angina Code(s): I20.0 - Unstable angina Status: Acute (3) Pulmonary embolus Code(s): I26.99 - Other pulmonary embolism without acute cor pulmonale Status : Acute (4) SVT (supraventricular tachycardia) Code(s): I47.1 - Supraventricular tachycardia Status: Acute - Plan 1.) [place] - rhc/lhc is medically necessary due to new onset cardiac symptoms of chest pain at rest, dyspnea, [place], ccs class 4 angina, chf, arrythmia; will jessica to hold eliquis and start heparin bridge; plan cath for feb 26, 2018, d/w patient
[2018-02-24] MEDS: Metoprolol Tartrate 25 MG Tablet PO SCH ×2 (08:20→20:14)
--- NOTE | 2018-02-24 11:55 | ECHRPT ---
Indication: CARDIOMYOPATHY CONCLUSIONS The left ventricular systolic function is normal with an estimated ejection fraction in the range of 55-60%. Normal left ventricular size. Wall thickness is normal. No definite regional wall motion abnormalit ies are present. Mild thickening of the mitral valve leaflets. Trace mitral valve regurgitation. The aortic valve is not well visualized. Trace aortic valve regurgitation. BP: / HR: Rhythm: Sinus MEASUREMENTS (Male / Female) Normal Values Technical Quality:Poor 2D ECHO LVOT Diameter 1.8 cm LV Ejection Fraction MOD 4C 50.5 % LV Ejection Fraction 4C AL 54.2 % M-MODE LV Diastolic Diameter MM 5.0 cm 4.2 - 5.9 / 3.9 - 5.3 cm LV Systolic Diameter MM 4.0 cm LV Ejection Fraction MM Teich 40.3 % IVS Diastolic Thickness MM 1.3 cm 0.6 - 1.0 / 0.6 - 0.9 cm LVPW Diastolic Thickness MM 1.3 cm 0.6 - 1.0 / 0.6 - 0.9 cm LV Relative Wall Thickness MM 0.5 0.24 - 0.42 / 0.22 - 0.42 Aortic Root Diameter MM 2.3 cm LA Systolic Diameter MM 3.4 cm LA Ao Ratio MM 1.5 AV Cusp Separation MM 2.0 cm DOPPLER AV Peak Velocity 166.0 cm/s AV Peak Gradient 11.0 mmHg LVOT Peak Velocity 114.0 cm/s LVOT Peak Gradient 5.2 mmHg AV Area Cont Eq pk 1.7 cm MV Area PHT 2.8 cm Mitral E Point Velocity 59.2 cm/s Mitral A Point Velocity 80.5 cm/s Mitral E to A Ratio 0.7 LV E' Lateral Velocity 9.7 cm/s Mitral E to LV E' Lateral Ratio 6.1 LV E' Septal Velocity 6.9 cm/s Mitral E to LV E' Septal Ratio 8.6 PV Peak Velocity 103.0 cm/s PV Peak Gradient 4.2 mmHg FINDINGS LEFT VENTRICLE The left ventricular systolic function is normal with an estimated ejection fraction in the range of 55-60%. Normal left ventricular size. Wall thickness is normal. No definite regional wall motion abnormalit ies are present. RIGHT VENTRICLE Normal right ventricular size and systolic function. LEFT ATRIUM The left atrial size is normal. RIGHT ATRIUM The right atrial size is normal. ATRIAL SEPTUM Normal atrial septal thickness without atrial level shunting by limited color doppler interrogation. AORTA The aortic root and proximal ascending aorta are normal in size on limited imaging. MITRAL VALVE Mild thickening of the mitral valve leaflets. Trace mitral valve regurgitation. AORTIC VALVE The aortic valve is not well visualized. Trace aortic valve regurgitation. TRICUSPID VALVE Structurally normal tricuspid valve. No tricuspid valve stenosis or regurgitation. PULMONARY VALVE The pulmonary valve is not well visualized. VESSELS The inferior vena cava was not well visualized. PERICARDIUM No pericardial effusion. Jose Alfredo Bangura MD (Electronically Signed) Final Date:24 February 2018 11:54
--- NOTE | 2018-02-24 14:04 | P.PN ---
Subjective Interval history: Nursing denies any acute changes overnight. Patient herself says she has a mild headache today and mild intermittent chest pain. Otherwise has no acute complaints. Says she wears 2 L of oxygen at home. Physical Exam Vital signs: Vital Signs 02/23/18 15:00 02/23/18 16:00 02/23/18 17:00 Temperature Pulse Rate 64 60 64 Respiratory Rate 20 Blood Pressure 140/89 Pulse Oximetry 02/23/18 17:03 02/23/18 18:00 02/23/18 19:00 Temperature Pulse Rate 66 61 Respiratory Rate Blood Pressure Pulse Oximetry 97 02/23/18 20:00 02/23/18 21:00 02/23/18 22:00 Temperature 98.6 F Pulse Rate 61 58 L 57 L Respiratory Rate 20 Blood Pressure 150/89 H Pulse Oximetry 97 02/23/18 23:00 02/24/18 00:00 02/24/18 01:00 Temperature 98.2 F Pulse Rate 57 L 58 L 57 L Respiratory Rate 18 Blood Pressure 148/92 H Pulse Oximetry 97 02/24/18 02:00 02/24/18 03:00 02/24/18 04:00 Temperature 97.9 F Pulse Rate 58 L 59 L 57 L Respiratory Rate 18 Blood Pressure 148/92 H Pulse Oximetry 96 02/24/18 05:00 02/24/18 06:00 02/24/18 07:00 Temperature Pulse Rate 56 L 58 L 64 Respiratory Rate Blood Pressure Pulse Oximetry 02/24/18 08:00 02/24/18 09:00 02/24/18 10:00 Temperature 98.1 F Pulse Rate 78 54 L 54 L Respiratory Rate 18 18 Blood Pressure 164/106 H 149/73 H Pulse Oximetry 91 L 96 02/24/18 11:00 02/24/18 12:00 Temperature 98.0 F Pulse Rate 53 L 57 L Respiratory Rate 18 Blood Pressure 148/76 H Pulse Oximetry 95 Intake & Output 02/23/18 02/24/18 02/24/18 18:59 06:59 18:59 Intake Total 440 / 440 Output Total 600 / 600 Balance -160 / -160 Weight 132.5 kg 132.6 kg Intake: Oral 440 / 440 Output: Urine 600 / 600 Other: Date of Last Bowel Movement 02/22/18 02/22/18 02/22/18 # Bowel Movements 0 Weight On Admission 132.5 kg Narrative: Heart sounds regular rate and rhythm, no murmurs Clear lungs bilaterally, unlabored breathing Nasal cannula in nose Lying in bed, no lower extremity edema Results - Labs CBC & Chem 7: 02/24/18 04:35 02/24/18 04:35 Laboratory Results - last 24 hr 02/24/18 02/24/18 02/24/18 04:35 04:35 04:35 WBC 6.5 RBC 4.91 Hgb 13.8 Hct 42.1 MCV 85.9 MCH 28.2 MCHC 32.8 RDW 15.0 Plt Count 206 MPV 10.7 Neut % (Auto) 57.3 Lymph % (Auto) 28.1 [place] % (Auto) 8.8 H Eos % (Auto) 4.6 H Baso % (Auto) 1.2 Neut # (Auto) 3.7 Lymph # (Auto) 1.8 [place] # (Auto) 0.6 Eos # (Auto) 0.3 Baso # (Auto) 0.1 WBC Differential . Differential Comment Auto diff final Sodium 142 Potassium 4.1 Chloride 107 Carbon Dioxide 27.7 Anion Gap 7 BUN 13 Creatinine 0.83 Estimated GFR 70 L Random Glucose 93 Calcium 8.7 Total Bilirubin 0.3 AST 13 L ALT 17 Alkaline Phosphatase 106 B-Natriuretic Peptide 199 H Total Protein 7.0 D Albumin 3.1 L Assessment and Plan - Assessment (1) SVT (supraventricular tachycardia) Code(s): I47.1 - Supraventricular tachycardia Status: Acute - Plan 62-year-old female with: Symptomatic SVT: Patient was given adenosine and converted to sinus rhythm. She was started on metoprolol. -Continue metoprolol, telemetry Cardiology following, plans for right heart cath and left heart cath in 2 days History of PE: -Holding Eliquis, heparin drip to be started in light of procedure in 2 days per cardiology GI prophylaxis: Stool softener PRN constipation. DVT PPx: Heparin drip
[2018-02-24 14:26] LABS: Prothrombin Time 10.6 sec (9.8-11.6)
[2018-02-24] MEDS: Acetaminophen 500 MG Tablet PO PRN (15:47)
[2018-02-24] MEDS: Heparin Drip 25,000 UNIT/250 ML BAG IV.CONT PRN (17:27)
[2018-02-24] MEDS ORDERED: Heparin 10,000 UNITS/10 ML Vial (for IV use) IV.PUSH PRN ×2 (21:40)
[2018-02-25] MEDS: Acetaminophen 500 MG Tablet PO PRN (05:04)
[2018-02-25] MEDS: Heparin Drip 25,000 UNIT/250 ML BAG IV.CONT PRN ×2 (05:07→21:44)
--- NOTE | 2018-02-25 08:22 | P.PNCA ---
Subjective Interval history: alert in nad, c/o intermittent chest pain Medications and Allergies Active Medications: Active Medications Acetaminophen (Tylenol) 500 mg PO Q8H PRN PRN Reason: PAIN 1-10 Last Admin: 02/25/18 05:04 Dose: 500 mg Al Hydroxide/Mg Hydroxide (Milk Of Magnesia Liq) 30 ml PO Q12H PRN PRN Reason: Mild Constipation Apixaban (Eliquis) 2.5 mg PO BID [facility] Last Admin: 02/24/18 08:20 Dose: 2.5 mg Bisacodyl (Dulcolax Supp) 10 mg RECTAL DAILY PRN PRN Reason: SEVERE CONSITIPATION Heparin Sodium (Porcine) (Heparin Inj) 2,500 units IV.PUSH UNSCH PRN PRN Reason: aPTT 25-39 Heparin Sodium (Porcine) (Heparin Inj) 5,000 units IV.PUSH UNSCH PRN PRN Reason: aPTT < 25 Heparin Sodium/Dextrose (Heparin/D5w 25,000 U/250 Ml) 25,000 unit in 250 mls @ 18 mls/hr IV.CONT TITRATE PRN; Protocol PRN Reason: Per Protocol Last Admin: 02/25/18 05:07 Dose: 1,800 units/hr, 18 mls/hr Lactulose (Lactulose Liq) 30 ml PO DAILY PRN PRN Reason: SEVERE CONSITIPATION Metoprolol Tartrate (Lopressor) 25 mg PO BID [facility] Last Admin: 02/24/18 20:14 Dose: 25 mg Sennosides (Senokot) 17.2 mg PO Q12H PRN PRN Reason: Moderate Constipation Sodium Chloride (Ns Flush) 2 ml IV.FLUSH UNSCH PRN PRN Reason: FLUSH AFTER USING IV ACCESS Allergies Allergy/AdvReac Type Severity Reaction Status Date / Time ibuprofen Allergy Severe ITCHING Unverified 11/29/16 22:41 Home Medications Medication Instructions Recorded Confirmed Type alprazolam 0.5 mg PO TID PRN 02/24/18 02/24/18 History amlodipine 10 mg PO DAILY 02/24/18 02/24/18 History fluticasone-salmeterol [Advair 1 inh INHALATION BID 02/24/18 02/24/18 History Diskus] furosemide 40 mg PO DAILY 02/24/18 02/24/18 History losartan 100 mg PO DAILY 02/24/18 02/24/18 History pantoprazole 40 mg PO DAILY 02/24/18 02/24/18 History simvastatin 80 mg PO QPM 02/24/18 02/24/18 History zolpidem 10 mg PO HS 02/24/18 02/24/18 History Physical Exam Vital signs: Vital Signs 02/24/18 09:00 02/24/18 10:00 02/24/18 11:00 Temperature Pulse Rate 54 L 54 L 53 L Respiratory Rate 18 Blood Pressure 149/73 H Pulse Oximetry 96 02/24/18 12:00 02/24/18 13:00 02/24/18 14:00 Temperature 98.0 F Pulse Rate 57 L 54 L 56 L Respiratory Rate 18 Blood Pressure 148/76 H Pulse Oximetry 95 02/24/18 15:00 02/24/18 16:00 02/24/18 17:00 Temperature 99.1 F Pulse Rate 55 L 56 L 70 Respiratory Rate 18 Blood Pressure 147/73 H Pulse Oximetry 96 02/24/18 17:15 02/24/18 18:00 02/24/18 19:00 Temperature Pulse Rate 56 L 64 Respiratory Rate Blood Pressure Pulse Oximetry 96 02/24/18 20:00 02/24/18 21:00 02/24/18 22:00 Temperature 98.1 F Pulse Rate 56 L 84 50 L Respiratory Rate 20 Blood Pressure 135/72 Pulse Oximetry 96 02/24/18 23:00 02/24/18 23:32 02/25/18 00:00 Temperature 98.3 F Pulse Rate 48 L 52 L 55 L Respiratory Rate 20 Blood Pressure 124/60 Pulse Oximetry 95 02/25/18 01:00 02/25/18 02:00 02/25/18 03:00 Temperature Pulse Rate 47 L 46 L 50 L Respiratory Rate Blood Pressure Pulse Oximetry 02/25/18 04:00 02/25/18 05:00 02/25/18 06:00 Temperature 98.2 F Pulse Rate 50 L 55 L 53 L Respiratory Rate 20 Blood Pressure 135/67 Pulse Oximetry 95 02/25/18 06:11 Temperature Pulse Rate Respiratory Rate 20 Blood Pressure Pulse Oximetry Intake & Output 02/24/18 02/25/18 02/25/18 18:59 06:59 18:59 Intake Total 940 / 940 490 / 490 Balance 940 / 940 490 / 490 Weight 132.5 kg Intake: IV 250 / 250 Heparin/D5W 25,000 U/250 mL 25, 250 / 250 000 unit In 250 ml @ 1,800 UNITS/HR 18 mls/hr IV.CONT TITRATE PRN Rx#:[id number] Oral 940 / 940 240 / 240 Other: # Voids 7 3 Date of Last Bowel Movement 02/24/18 # Bowel Movements 1 - Constitutional no acute distress - Routine HEENT Exam Head: Present: normocephalic - Routine Neck Exam Present: supple - Routine Respiratory Exam Present: CTA bilaterally - Routine Cardiovascular Exam Present: S1, S2 - Routine Abdominal Exam Present: soft - Routine Extremities Exam Comments: no juan Results 02/24/18 04:35 02/24/18 04:35 Cardiac Enzymes 02/24/18 02/24/18 Range/Units 04:35 04:35 AST 13 L (15-37) U/L B-Natriuretic Peptide 199 H (0-100) pg/mL Coagulation 02/24/18 02/24/18 02/24/18 Range/Units 04:35 13:30 23:16 PT 10.6 (9.8-11.6) sec APTT 32.0 H 58.5 H D (23.4-31.7) sec B-Natriuretic Peptide 199 H (0-100) pg/mL CBC 02/24/18 Range/Units 04:35 WBC 6.5 (4.0-11.0) th/mm3 RBC 4.91 (4.00-5.30) mil/mm3 Hgb 13.8 (11.6-15.3) gm/dL Hct 42.1 (35.0-46.0) % Plt Count 206 (150-450) th/mm3 Neut # (Auto) 3.7 (1.8-7.7) th/mm3 Lymph # (Auto) 1.8 (1.0-4.8) th/mm3 Payne # (Auto) 0.6 (0.0-0.9) th/mm3 Eos # (Auto) 0.3 (0.0-0.4) th/mm3 Baso # (Auto) 0.1 (0.0-0.2) th/mm3 Comprehensive Metabolic Panel 02/24/18 Range/Units 04:35 Sodium 142 (136-145) meq/L Potassium 4.1 (3.5-5.1) meq/L Chloride 107 (98-107) meq/L Carbon Dioxide 27.7 (21.0-32.0) meq/L BUN 13 (7-18) mg/dL Creatinine 0.83 (0.50-1.00) mg/dL Calcium 8.7 (8.5-10.1) mg/dL AST 13 L (15-37) U/L ALT 17 (10-53) U/L Alkaline Phosphatase 106 (45-117) U/L Total Protein 7.0 D (6.4-8.2) g/dL Albumin 3.1 L (3.4-5.0) g/dL Intake and Output 02/24/18 02/25/18 02/25/18 22:59 06:59 14:59 Intake Total 940 / 940 490 / 490 Balance 940 / 940 490 / 490 Intake: IV 250 / 250 Heparin/D5W 25,000 U/250 mL 25, 250 / 250 000 unit In 250 ml @ 1,800 UNITS/HR 18 mls/hr IV.CONT TITRATE PRN Rx#:[id number] Oral 940 / 940 240 / 240 Other: # Voids 7 3 Date of Last Bowel Movement 02/24/18 # Bowel Movements 1 Weight 132.5 kg Assessment and Plan - Assessment (1) CHF (congestive heart failure) Code(s): I50.9 - Heart failure, unspecified Status: Acute (2) Unstable angina Code(s): I20.0 - Unstable angina Status: Acute (3) Pulmonary embolus Code(s): I26.99 - Other pulmonary embolism without acute cor pulmonale Status : Acute (4) SVT (supraventricular tachycardia) Code(s): I47.1 - Supraventricular tachycardia Status: Acute - Plan 1.) [place] - rhc/lhc is medically necessary due to new onset cardiac symptoms of chest pain at rest, dyspnea, usa, ccs class 4 angina, chf, arrythmia; will jessica to hold eliquis and start heparin bridge; plan cath for feb 26, 2018, d/w patient and nurse, recheck trop and bnp
[2018-02-25 08:44] LABS: Hematocrit 43.4 % (35.0-46.0); Hemoglobin 14.1 gm/dL (11.6-15.3); Mean Corpuscular HGB Conc 32.5 % (32.0-36.0); Mean Corpuscular Hemoglobin 28.1 pg (27.0-34.0); Mean Corpuscular Volume 86.5 fL (80.0-100.0); Mean Platelet Volume 11.3 fL (7.0-11.0); Platelet Count 194 th/mm3 (150-450); Red Blood Count 5.02 mil/mm3 (4.00-5.30); Red Cell Distribution Width 14.9 % (11.6-17.2)
[2018-02-25] MEDS: Metoprolol Tartrate 25 MG Tablet PO SCH ×2 (10:00→20:47)
[2018-02-25] MEDS: Budesonide-Formoterol 160/4.5 MCG 6 GM Inhaler INH SCH ×2 (12:08→20:47)
[2018-02-25] MEDS: amLODIPine 10 MG Tablet PO SCH (12:08)
--- NOTE | 2018-02-25 13:39 | P.PN ---
Subjective Interval history: Nursing denies any acute deteriorations overnight. Patient herself says she feels a little better than yesterday. Very mild split-second chest pain that self resolved. Physical Exam Vital signs: Vital Signs 02/24/18 14:00 02/24/18 15:00 02/24/18 16:00 Temperature 99.1 F Pulse Rate 56 L 55 L 56 L Respiratory Rate 18 Blood Pressure 147/73 H Pulse Oximetry 96 02/24/18 17:00 02/24/18 17:15 02/24/18 18:00 Temperature Pulse Rate 70 56 L Respiratory Rate Blood Pressure Pulse Oximetry 96 02/24/18 19:00 02/24/18 20:00 02/24/18 21:00 Temperature 98.1 F Pulse Rate 64 56 L 84 Respiratory Rate 20 Blood Pressure 135/72 Pulse Oximetry 96 02/24/18 22:00 02/24/18 23:00 02/24/18 23:32 Temperature 98.3 F Pulse Rate 50 L 48 L 52 L Respiratory Rate 20 Blood Pressure 124/60 Pulse Oximetry 95 02/25/18 00:00 02/25/18 01:00 02/25/18 02:00 Temperature Pulse Rate 55 L 47 L 46 L Respiratory Rate Blood Pressure Pulse Oximetry 02/25/18 03:00 02/25/18 04:00 02/25/18 05:00 Temperature 98.2 F Pulse Rate 50 L 50 L 55 L Respiratory Rate 20 Blood Pressure 135/67 Pulse Oximetry 95 02/25/18 06:00 02/25/18 06:11 02/25/18 07:00 Temperature Pulse Rate 53 L 54 L Respiratory Rate 20 Blood Pressure Pulse Oximetry 02/25/18 08:00 02/25/18 09:00 02/25/18 10:00 Temperature 97.8 F Pulse Rate 50 L 62 52 L Respiratory Rate 18 Blood Pressure 144/69 H Pulse Oximetry 96 02/25/18 12:00 Temperature 98.7 F Pulse Rate 88 Respiratory Rate 18 Blood Pressure 146/67 H Pulse Oximetry 95 Intake & Output 02/24/18 02/25/18 02/25/18 18:59 06:59 18:59 Intake Total 940 / 940 490 / 490 Balance 940 / 940 490 / 490 Weight 132.5 kg Intake: IV 250 / 250 Heparin/D5W 25,000 U/250 mL 25, 250 / 250 000 unit In 250 ml @ 1,800 UNITS/HR 18 mls/hr IV.CONT TITRATE PRN Rx#:[id number] Oral 940 / 940 240 / 240 Other: # Voids 7 3 Date of Last Bowel Movement 02/24/18 # Bowel Movements 1 Narrative: Sounds regular rate rhythm, no murmurs Clear lungs bilaterally, unlabored breathing Sitting up at the side of the bed No lower extremity edema Results - Labs CBC & Chem 7: 02/25/18 07:17 02/24/18 04:35 Laboratory Results - last 24 hr 02/24/18 02/24/18 02/25/18 13:30 23:16 07:17 WBC 7.0 RBC 5.02 Hgb 14.1 Hct 43.4 MCV 86.5 MCH 28.1 MCHC 32.5 RDW 14.9 Plt Count 194 MPV 11.3 H PT 10.6 INR 1.0 APTT 32.0 H 58.5 H D Troponin I 02/25/18 02/25/18 02/25/18 07:17 10:10 10:53 WBC RBC Hgb Hct MCV MCH MCHC RDW Plt Count MPV PT INR APTT 100.3 H* D 55.8 H D Troponin I 0.06 H Assessment and Plan - Assessment (1) SVT (supraventricular tachycardia) Code(s): I47.1 - Supraventricular tachycardia Status: Acute - Plan 62-year-old female with: Symptomatic SVT: Patient was given adenosine and converted to sinus rhythm. She was started on metoprolol. -Continue metoprolol, telemetry Cardiology following, plans for right heart cath and left heart cath tomorrow History of PE: -Holding Eliquis, heparin drip in light of procedure tomorrow GI prophylaxis: Stool softener PRN constipation. DVT PPx: Heparin drip
[2018-02-25] MEDS: ALPRAZolam 0.5 MG Tablet PO PRN ×2 (17:53→20:47)
[2018-02-26 07:37] LABS: Hematocrit 41.5 % (35.0-46.0); Hemoglobin 13.8 gm/dL (11.6-15.3); Mean Corpuscular HGB Conc 33.3 % (32.0-36.0); Mean Corpuscular Hemoglobin 28.4 pg (27.0-34.0); Mean Corpuscular Volume 85.5 fL (80.0-100.0); Mean Platelet Volume 11.7 fL (7.0-11.0); Platelet Count 198 th/mm3 (150-450); Red Blood Count 4.86 mil/mm3 (4.00-5.30); Red Cell Distribution Width 15.2 % (11.6-17.2); White Blood Count 7.5 th/mm3 (4.0-11.0)
[2018-02-26 07:59] LABS: Calcium 8.8 mg/dL (8.5-10.1); Carbon Dioxide 29.7 meq/L (21.0-32.0); Magnesium 2.3 mg/dL (1.5-2.5); Potassium 4.3 meq/L (3.5-5.1)
[2018-02-26 08:02] LABS: Troponin I 0.03 ng/mL (0.02-0.05)
[2018-02-26] MEDS: Metoprolol Tartrate 25 MG Tablet PO SCH ×2 (08:54→20:48)
[2018-02-26] MEDS: amLODIPine 10 MG Tablet PO SCH (08:54)
[2018-02-26] MEDS: Budesonide-Formoterol 160/4.5 MCG 6 GM Inhaler INH SCH ×2 (08:55→20:49)
[2018-02-26] MEDS ORDERED: Sodium Chloride 0.9% 2 ML Flush PRN IV.FLUSH (09:28)
--- NOTE | 2018-02-26 11:48 | P.PNIM ---
Subjective Interval history: The patient was resting in bed. She was nervous about the catheterization. Her family was at the bedside. She says she has been ambulating out of bed. She feels a little thirsty. Physical Exam Vital signs: Vital Signs 02/25/18 12:00 02/25/18 13:00 02/25/18 14:00 Temperature 98.7 F Pulse Rate 88 66 62 Respiratory Rate 18 Blood Pressure 146/67 H Pulse Oximetry 95 02/25/18 15:00 02/25/18 16:00 02/25/18 17:00 Temperature 98.0 F Pulse Rate 69 60 68 Respiratory Rate 18 Blood Pressure 162/72 H Pulse Oximetry 96 02/25/18 18:00 02/25/18 19:00 02/25/18 20:00 Temperature 97.3 F L Pulse Rate 74 77 82 Respiratory Rate 18 Blood Pressure 137/70 Pulse Oximetry 93 L 02/25/18 21:00 02/25/18 22:00 02/25/18 23:00 Temperature Pulse Rate 114 H 74 70 Respiratory Rate Blood Pressure Pulse Oximetry 02/26/18 00:00 02/26/18 01:00 02/26/18 02:00 Temperature Pulse Rate 72 77 68 Respiratory Rate 18 Blood Pressure Pulse Oximetry 02/26/18 03:00 02/26/18 04:00 02/26/18 05:00 Temperature Pulse Rate 68 64 88 Respiratory Rate Blood Pressure Pulse Oximetry 02/26/18 06:00 02/26/18 07:00 02/26/18 07:54 Temperature 97.1 F L Pulse Rate 87 64 64 Respiratory Rate 20 Blood Pressure 132/72 Pulse Oximetry 97 02/26/18 08:00 02/26/18 09:00 02/26/18 10:00 Temperature Pulse Rate 64 62 64 Respiratory Rate Blood Pressure Pulse Oximetry 02/26/18 11:00 02/26/18 11:41 Temperature Pulse Rate 62 62 Respiratory Rate 18 Blood Pressure 147/74 H Pulse Oximetry 98 Intake & Output 02/25/18 02/26/18 02/26/18 18:59 06:59 18:59 Intake Total 490 / 490 Balance 490 / 490 Weight 133 kg Intake: IV 250 / 250 Heparin/D5W 25,000 U/250 mL 25, 250 / 250 000 unit In 250 ml @ 1,800 UNITS/HR 18 mls/hr IV.CONT TITRATE PRN Rx#:[id number] Oral 240 / 240 Other: # Voids 2 Date of Last Bowel Movement 02/24/18 02/26/18 Narrative: GENERAL: Well-developed, well-nourished, NAD. SKIN: Focused skin assessment warm/dry. HEAD: Atraumatic. Normocephalic. EYES: Pupils equal and round. No scleral icterus. No injection or drainage. ENT: No nasal bleeding or discharge. Mucous membranes pink and moist. NECK: Trachea midline. No JVD. CARDIOVASCULAR: Regular rate and rhythm. RESPIRATORY: No accessory muscle use. Clear to auscultation. Breath sounds equal bilaterally. GASTROINTESTINAL: Abdomen soft, non-tender, nondistended. MUSCULOSKELETAL: No obvious deformities. No clubbing. No cyanosis. No edema. NEUROLOGICAL: Awake and alert. No obvious cranial nerve deficits. Motor grossly within normal limits. Normal speech. PSYCHIATRIC: Appropriate mood and affect; insight and judgment normal. Results - Labs CBC & Chem 7: 02/26/18 05:57 02/26/18 05:57 Laboratory Results - last 24 hr 02/25/18 02/25/18 02/25/18 13:57 16:20 22:25 WBC RBC Hgb Hct MCV MCH MCHC RDW Plt Count MPV APTT 65.4 H 68.6 H 57.8 H Sodium Potassium Chloride Carbon Dioxide Anion Gap BUN Creatinine Estimated GFR Random Glucose Calcium Magnesium Troponin I B-Natriuretic Peptide 02/26/18 02/26/18 02/26/18 05:57 05:57 05:57 WBC 7.5 RBC 4.86 Hgb 13.8 Hct 41.5 MCV 85.5 MCH 28.4 MCHC 33.3 RDW 15.2 Plt Count 198 MPV 11.7 H APTT Sodium 143 Potassium 4.3 Chloride 105 Carbon Dioxide 29.7 Anion Gap 8 BUN 12 Creatinine 0.83 Estimated GFR 70 L Random Glucose 102 Calcium 8.8 Magnesium 2.3 Troponin I 0.03 B-Natriuretic Peptide 38 Assessment and Plan - Assessment (1) SVT (supraventricular tachycardia) Code(s): I47.1 - Supraventricular tachycardia Status: Acute - Plan Symptomatic SVT Patient was given adenosine and converted to sinus rhythm. She was started on metoprolol. Trop 0.06. BNP 199. -Continue metoprolol. -telemetry. Cardiology following, plans for right heart cath and left heart cath today. History of PE Chronic. -Holding Eliquis, heparin drip in light of procedure. HTN Well controlled at this time. -resume home regimen. Adjust as needed. DVT PPx: Heparin drip Discharge Planning: Await cardiology clearance
[2018-02-26] MEDS ORDERED: fentaNYL Citrate Inj 100 MCG/2 ML Ampul ONE (12:26)
[2018-02-26] MEDS ORDERED: Lidocaine PF 1% Inj 30 ML Vial ONE (12:26)
[2018-02-26] MEDS ORDERED: Heparin/NS PF Inj 1,000 ML ONE (12:26)
--- NOTE | 2018-02-26 13:24 | CATHPROC ---
[facility] HIS Report Study Information Study Number Admission Scheduled Start Study Start [id number] Feb 23 2018 5:20AM 02/25/2018 Feb 26 2018 12:11PM [place] [facility] Cardiac Catheterization Admit Source Facility Department Emergency department [facility] - [employer] Physician and Clinical Staff Initial Reymundo Ca Area Director Rehana Chan,RN Recorder Jose Manuel Sorto,RT(R) Scrub Fernando David RCIS(BS) Procedures Performed Procedure Location (Site) Vessel Name Coronary Angiograms LCA Left Coronary Coronary Angiograms RCA Right Coronary L Heart Cath LV Gram-hand inj. LV LV Ventricle Equipment Time Supervisor Tellers Description Size Mfg Part Number Used/Scraped CATHETER, FR5 SWAN SUDHIR 12:33 [employer] FR 5 [id number] *[id number] Used MONITOR TRANSDUCER, TRUWAVE [id number] 12:33 ALVARADO WOLF * Used W/STOCKCOCK *[id number] [id number] *[id number] [id number] *[id number] 12:33 [employer] BLANKET,WARM AIR CCL * Used *[id number] 12:33 [employer] PACK, CCL CUSTOM * Used *[id number] 12:33 [employer] PACER PEN, SKIN DUAL W/ RULER * Used *[id number] 12:33 [employer] MEDICAL SHEATH, FR5.5 PRELUDE 11CM FR 5.5 Used 038ACT# [id number] 12:33 [employer] MEDICAL WIRE, 3MMJ .035 180CM 180CM Used *[id number] 12:33 NAMIC MANIFOLD, 4 PORT * Used *[id number] 12:33 [employer] OMNIPAQUE, 350 MG, 150ML 150ML [id number] Used [id number] 12:33 [place] [employer] [facility] MEDICAL SHEATH, FR4 TERUMO (10CM) FR 4 Used *[id number] History: Allergies Allergy Reaction ibuprofen ITCHING History: Risk Factors Family History of Hypertension Dyslipidemia Previous SC Previous Heart Failure Premature CAD Yes Yes Yes Yes Yes Prior Valve Prior PCI Prior CABG Surgery No No No Cerebrovascular Peripheral Artery Chronic Lung On Dialysis Diabetes Diabetes Therapy Disease Disease Disease No No No Yes Yes Diet History: Stress Tests Stress or Imaging Studies Performed No History: Other Disease Selection Items HTN History: Other Current Smoker No Labs Hgb (g/dl) Hct (%) WBC (l/cumm) Platelets (thousands) 11.60-17.00 35.00-51.00 4.00-11.00 150.00-450.00 14.0 43 7 194 Glucose (mg/dl) BUN (mg/dl) Creatinine (mg/dl) BUN:Creatinine (1:x) 74.00-106.00 7.00-18.00 0.50-1.30 10.00-20.00 93 13 0.8 16.3 Na (meq/l) K (meq/l) 136.00-145.00 3.50-5.10 142 4.1 INR (PTT:PT) 0.90-1.10 1 Troponin I (ng/ml) CPK (u/l) CPK-MB (ng/ML) 0.02-0.05 26.00-308.00 0.50-3.60 0.06 78 Not Drawn Medication Medication Total Dose (Bolus/Oral) Medication Total Dosage/Unit 1% XYLOCAINE 20 mL FENTANYL 25 mcg VERSED 1 mg Medications (Bolus/Oral) Medication Time Given Dosage/Unit Administered By Reason 02/26/2018 12:43:52 VERSED 1 mg Rehana Cahn 1 mg VERSED given in lab by Rehana Chan RN in Right Forearm via Peripheral IV. 02/26/2018 12:44:03 FENTANYL 25 mcg Rehana Chan 25 mcg FENTANYL given in lab by Rehana Chan RN in Right Forearm via Peripheral IV. 02/26/2018 12:48:45 1% XYLOCAINE 20 mL Reymundo Willis PM 20 mL 1% XYLOCAINE given in lab by Reymundo Willis in Right Groin via Subcutaneous. Medication (Drip) Medication Time Given Dosage/Unit Concentration/Unit Diluent (ml) Solution 02/26/2018 12:30:41 IV Solutions 0 mL (IV) 500 NaCl .9 PM IV Solutions given in lab by Rehana Chan RN in Right Forearm via Peripheral IV. Pump/Drip Flow = 20 ml/hr using NaCl .9. Initial Case Assessment Cardiovascular HR Rhythm NIBP Chest Pain 76 Sinus 189/109 0 Edema Present Skin color Skin None Normal Warm Dry Circulatory - Right Pulses Dorsalis Pedis Femoral 1 1 Scale (0,1,2,3,4,d) Circulatory - Left Pulses Dorsalis Pedis Femoral 1 1 Scale (0,1,2,3,4,d) Neurological State Oriented to time-place- Alert Moves all extremities person Respiration - General Respiration Rate SpO2 (%) O2 (lpm) (B/min) 25 95 0 Final Case Assessment Cardiovascular HR Rhythm NIBP Chest Pain 75 Sinus 180/101 0 Circulatory - Right Pulses Dorsalis Pedis Femoral 1 1 Scale (0,1,2,3,4,d) Circulatory - Left Pulses Dorsalis Pedis Femoral 1 1 Scale (0,1,2,3,4,d) Neurological State Oriented to time-place- Alert Moves all extremities person Respiration - General Respiration Rate SpO2 (%) O2 (lpm) (B/min) 19 91 2 Chronological Log Time Study Chronological Log 12:16:08 Patient arrived via Bed. 12:24:14 Patient Name, D.O.B, / Armband Verified By R.N. 12:24:18 Consent signed by the physician and the patient and verified by the [employer] staff. 12:26:18 Reference ECG taken 12:30:13 Pre-op and post- op instructions given; patient acknowledges understanding of instructions. 12:30:15 Verbal Stimulation=2 Physical Stimulation=2 Airway=2 Respiration=2 TOTAL=8. (0=absent, 1=li mited, 2=present) 12:30:18 Presedation assessment performed by [employer] RN. 12:30:21 Patient has been NPO for More than 6Hrs. 12:30:22 Skin Breakdown- 12:30:29 Patient Warmer Placed on the Table. 12:30:36 Howie Prominences Protected 12:30:40 A # 20 IV was noted in the Hand (right). Grade = 0 IV Solutions given in lab by Rehana Chan, RN in Right Forearm via Peripheral IV. Pump/Drip Flow = 20 ml/hr using 12:30:41 NaCl .9. 12:30:42 History and physical on the chart or being dictated. Assessment: Initial Case, HR=76 BPM, Rhythm=Sinus, XPXC=783/109 mmhg, Chest Pain=0, Edema=None, Color=Normal, Skin = Warm, Dry Right Pulses: Alejandro Ped=1, Femoral=1 12:30:49 Left Pulses: Alejandro Ped=1, Femoral=1 Neurological: State=Alert, Ox3, CORNEJO Respiration: Resp=25 B/min, SpO2=95 %, O2=0 lpm 12:30:57 Bilateral groins prepped with 2% chlorhexidine, and draped after a 3 minute waiting time. 12:32:18 MD paged Vitals capture started with the following parameters, Patient=Adult, Interval=5 min, Initial Pr hxmcfd=781 mmHg, 12:33:50 Deflation Rate=5 mmHg, Cuff placed on Left Arm 12:35:19 HR=77 bpm, PPHS=275/109 mmhg, SpO2=95.0 %, Resp=29 B/min, Pain=0, Syed=10, Cano=2 12:35:34 Pressure channel 1 zeroed. 12:39:33 HR=77 bpm, HCZA=585/106 mmhg, SpO2=94.0 %, Resp=29 B/min, Pain=0, Syed=10, Cano=2 12:41:11 MD arrived. Time Out. Correct patient, correct procedure, correct physician, labs, allergies, and equipment verified with laboratory coordinator 12:43:25 team present. Fire risk assesment completed (see hard stop sheet for coding). Time Out Conc urred by MD and individual staff in procedure. 12:43:52 1 mg VERSED given in lab by Rehana Chan, MARCUS in Right Forearm via Peripheral IV. 12:44:03 25 mcg FENTANYL given in lab by Rehana Chan, MARCUS in Right Forearm via Peripheral IV. 12:45:10 HR=79 bpm, QQWJ=876/114 mmhg, SpO2=94.0 %, Resp=28 B/min, Pain=0, Syed=10, Cano=2 12:48:45 20 mL 1% XYLOCAINE given in lab by Reymundo Willis in Right Groin via Subcutaneous. 12:48:47 Case Start 12:49:39 HR=76 bpm, GOEB=264/94 mmhg, SpO2=93.0 %, Resp=24 B/min, Pain=0, Syed=10, Cano=2 12:49:51 Access site was Right Femoral Vein. 12:50:12 A SHEATH, FR5.5 PRELUDE 11CM FR 5.5 was advanced into the Fem Vein (right) using the Percut aneous technique. 12:53:08 Access site was Right Femoral Artery. 12:53:46 A SHEATH, FR4 TERUMO (10CM) FR 4 was advanced into the Fem Art (right) using the Percutaneo us technique. 12:54:02 Saturation: Site=FA (Femoral Artery) , Hgb=14 gm/dl, Condition=Condition 1. Used in calcula tion. 12:54:30 Activated Clotting Time Drawn 12:55:27 HR=76 bpm, QYQQ=720/102 mmhg, SpO2=93.0 %, Resp=26 B/min, Pain=0, Syed=10, Cano=2 A JR 4.0 INFINITI CATHETER FR 4 was advanced over a wire. OMNIPAQUE, 350 MG, 150ML 150ML was us ed for 12:55:56 injections. 12:56:29 The LV was manually injected with 6 cc's and visualized. OMNIPAQUE, 350 MG, 150ML 150ML use d. Recorded Pressure: LV, HR=77, Condition=Condition 1 12:56:31 (Left Ventricle) LV 175/7/14 Recorded Pressure: LV, Ao, HR=78, Condition=Condition 1 12:56:37 (Left Ventricle) LV 175/8/12, (Aorta) Ao 172/89/123 12:56:59 The RCA was injected and visualized at various angles. OMNIPAQUE, 350 MG, 150ML 150ML used . Recorded Pressure: Ao, HR=77, Condition=Condition 1 12:57:04 (Aorta) Ao 163/90/120 12:57:21 ACT (Normal Range 90-180) = 147 12:57:56 Catheter was removed A JL 4.0 INFINITI CATHETER FR 4 was advanced over a wire. OMNIPAQUE, 350 MG, 150ML 150ML was us ed for 12:57:58 injections. Recorded Pressure: Ao, HR=82, Condition=Condition 1 12:58:38 (Aorta) Ao 173/92/125 12:58:45 The LCA was injected and visualized at various angles. OMNIPAQUE, 350 MG, 150ML 150ML used . 12:59:33 Catheter was removed 12:59:37 HR=79 bpm, DDSY=366/97 mmhg, SpO2=91.0 %, Resp=24 B/min, Pain=0, Syed=10, Cano=2 13:00:35 Case End (Physician broke scrub) 13:02:54 No case complications noted. 13:02:56 Cine recording checked. 13:04:10 Bedside Report will be given. 13:04:13 A Left Heart Cath was performed. Assessment: Final Case, HR=75 BPM, Rhythm=Sinus, TQPE=053/101 mmhg, Chest Pain=0 Right Pulses: Alejandro Ped=1, Femoral=1 13:04:22 Left Pulses: Alejandro Ped=1, Femoral=1 Neurological: State=Alert, Ox3, CORNEJO Respiration: Resp=19 B/min, SpO2=91 %, O2=2 lpm 13:04:42 HR=75 bpm, KDVH=184/101 mmhg, SpO2=92.0 %, Resp=20 B/min, Pain=0, Syed=10, Cano=2 13:06:02 Sheaths removed; pressure applied to access site. 13:10:12 HR=75 bpm, RUPH=480/91 mmhg, SpO2=93.0 %, Resp=21 B/min, Pain=0, Syed=10, Cano=2 13:15:13 HR=74 bpm, TVCX=121/89 mmhg, SpO2=93.0 %, Resp=13 B/min, Pain=0, Syed=10, Cano=2 13:19:37 HR=71 bpm, NUJE=892/95 mmhg, SpO2=94.0 %, Resp=15 B/min, Pain=0, Syed=10, Cano=2 13:24:17 Patient moved to [facility] End Study - Contrast Media Used In Study Contrast Total Opened (mL) Total Used (mL) Total Wasted (mL) Omnipaque 150 30 120 End Study - Maximum Contrast Load Max Contrast Load (mL) 831.3 End Study - Radiation Exposure Fluoro Time (minutes) 1.8 End Study - Patient Disposition Complications Transferred To Interventional Outcome No Telemetry Bed No attempt made
[2018-02-26] MEDS ORDERED: Misc Info for Pharmacy OTHER STA (13:33)
[2018-02-26] MEDS ORDERED: Iohexol 350 MG/ML 50 ML Vial (for Cath Lab) IVCONTRAST ONE (13:44)
--- NOTE | 2018-02-26 14:44 | MR ---
cc: Reymundo Willis MD DATE: 02/26/2018 PROCEDURE: Left heart catheterization, left ventriculography, coronary angiography. Right heart catheterization was not performed as the patient has a [place] filter in place. INDICATIONS: The indications for procedure are typical angina, diabetes mellitus, new onset chest pain, new onset dyspnea on exertion and congestive heart failure, supraventricular tachycardia and arrhythmia. DESCRIPTION OF PROCEDURE: The patient was brought to the cardiac catheterization laboratory, prepped and draped in the usual sterile fashion. Ten mL of 1% lidocaine was used to locally anesthetize the right common femoral artery. A 4-Mold[place] sheath was placed in the right common femoral artery. A 4-[place]oldovan JR4 and JL4 catheters were used to perform left coronary angiography and left ventriculography. FINDINGS: The LV pressure was 185/16/17, EF 60%. The right coronary artery is large and dominant. There is mild diffuse disease in the proximal segment up to 10% angiographically. The left main coronary artery is large with no significant disease angiographically. Left circumflex vessel was a large vessel, 4.5-5 mm reference vessel diameter with no significant disease angiographically. First obtuse marginal vessel is a small 0.5-1 mm vessel with no significant disease angiographically. Second obtuse marginal vessel comes off the distal segment. Again, it is a 0.5-1 mm vessel with no significant disease angiographically. There is a large posterolateral artery, 3.25 mm reference vessel diameter with no significant disease angiographically and then an additional posterolateral artery, which is a 2.5 mm vessel just beyond the first posterolateral artery with no significant obstructive disease. The LAD is transapical. There is mild diffuse disease in the proximal segment up to 10% angiographically. First diagonal artery is a small vessel, 2 mm reference vessel diameter with no significant disease angiographically. Note, the LAD is transapical. CONCLUSION: 1. Angiographically mild 2-vessel coronary artery disease with right dominant system as detailed above. 2. Normal left ventricular systolic function with ejection fraction 60%. 3. Recommend continue heparin bridge 4 hours after the sheath is out. Restart Eliquis 4 hours after the sheath is out. Discontinue heparin in the a.m. I have explained to the patient that she is high risk for traveling over the next 7 days due to right femoral artery puncture and being on Eliquis. 4. Recommend medical management of coronary artery disease and cardiac risk factor modification. MD GUNNER King/duong , 01:08 PM , 01:15 PM
[2018-02-26] MEDS ORDERED: Heparin Drip 25,000 UNIT/250 ML BAG IV.CONT PRN (18:10)
[2018-02-26] MEDS: Acetaminophen 500 MG Tablet PO PRN (20:48)
[2018-02-26] MEDS: Sodium Chloride 0.9% 2 ML Flush BID IV.FLUSH SCH (20:48)
[2018-02-27 03:45] VITALS: TEMP 98
[2018-02-27 08:32] LABS: Hematocrit 40.3 % (35.0-46.0); Hemoglobin 13.5 gm/dL (11.6-15.3); Mean Corpuscular HGB Conc 33.6 % (32.0-36.0); Mean Corpuscular Hemoglobin 28.8 pg (27.0-34.0); Mean Corpuscular Volume 85.6 fL (80.0-100.0); Mean Platelet Volume 10.7 fL (7.0-11.0); Platelet Count 186 th/mm3 (150-450); Red Blood Count 4.71 mil/mm3 (4.00-5.30); White Blood Count 6.6 th/mm3 (4.0-11.0)
[2018-02-27] MEDS: Metoprolol Tartrate 25 MG Tablet PO SCH (08:50)
[2018-02-27] MEDS: amLODIPine 10 MG Tablet PO SCH (08:50)
[2018-02-27] MEDS: Budesonide-Formoterol 160/4.5 MCG 6 GM Inhaler INH SCH (08:52)
[2018-02-27] MEDS: Sodium Chloride 0.9% 2 ML Flush BID IV.FLUSH SCH (08:52)
[2018-02-27 09:16] VITALS: BP 126/78; RESP 18; O2SAT 93
[2018-02-27 09:19] VITALS: PULSE 74
--- NOTE | 2018-02-27 09:19 | P.DS ---
Date of admission: 02/23/18 05:20 Primary care physician: Edgard Corral MD Anticipated date of discharge: 02/27/18 Brief History from admission: 62-year-old female with a medical history significant for PE, hypertension, hyperlipidemia presented to the emergency room with complaint of heart palpitations, shortness of breath, and generalized malaise. Workup in the emergency room revealed the patient to be in SVT. She was given adenosine and her heart rate normalized. In addition, she denies chest pain or shortness of breath. She was started on metoprolol and heart rate currently stable. Patient update on day of discharge: The patient was feeling well and wanted to go home. She denied any chest pain. She said she had some chronic shortness of breath but she has home oxygen for that. She said that she would be going on an airplane soon even though travel in the next 7 days was not recommended by cardiology. Discussed with nursing. DS: Diagnosis - Discharge Diagnosis (1) SVT (supraventricular tachycardia) Status: Acute DS: Medications - Discharge Medications Prescriptions: apixaban 2.5 mg PO BID #60 tab losartan 100 mg PO DAILY #30 tab metoprolol tartrate 25 mg PO BID #60 tab DS: Summary Hospital Course: Symptomatic SVT The patient was given adenosine and she then converted to sinus rhythm. She was started on metoprolol 25 mg p.o. twice daily. Trop peaked at 0.06. BNP was 199. She was monitored on telemetry. Cardiology was consulted. The patient is status post cardiac catheterization which showed: Angiographically mild 2- vessel coronary artery disease with right dominant system; Normal left ventricular systolic function with ejection fraction 60%. We held the pt's Eliquis and started a heparin drip. Following the heart cath we resumed the pt on her home Eliquis. The pt will follow up with cardiology as an outpt. She was advised not to travel for the next seven days per cardiology. - Time Spent with Patient Total time spent providing and/or coordinating discharge services: Less than 30 minutes - Quality: VTE Deep Vein Thrombosis/Pulmonary Embolism Present on Admission: No Exam Vital signs: Vital Signs 02/26/18 10:00 02/26/18 11:00 02/26/18 11:41 Temperature Pulse Rate 64 62 62 Respiratory Rate 18 Blood Pressure 147/74 H Pulse Oximetry 98 02/26/18 13:00 02/26/18 14:00 02/26/18 15:00 Temperature Pulse Rate 60 68 70 Respiratory Rate Blood Pressure Pulse Oximetry 02/26/18 16:00 02/26/18 17:00 02/26/18 18:00 Temperature Pulse Rate 62 70 72 Respiratory Rate 20 Blood Pressure 154/88 H Pulse Oximetry 02/26/18 19:00 02/26/18 20:00 02/26/18 21:00 Temperature 98.3 F Pulse Rate 92 H 68 61 Respiratory Rate 20 Blood Pressure 145/83 H Pulse Oximetry 97 02/26/18 22:00 02/26/18 23:00 02/27/18 00:00 Temperature 97.9 F Pulse Rate 64 69 82 Respiratory Rate 18 Blood Pressure 132/76 Pulse Oximetry 97 02/27/18 01:00 02/27/18 02:00 02/27/18 03:00 Temperature Pulse Rate 57 L 53 L 55 L Respiratory Rate Blood Pressure Pulse Oximetry 02/27/18 03:44 02/27/18 04:00 02/27/18 05:00 Temperature 98 F Pulse Rate 63 58 L 53 L Respiratory Rate 17 Blood Pressure 136/68 Pulse Oximetry 98 02/27/18 06:00 Temperature Pulse Rate 55 L Respiratory Rate Blood Pressure Pulse Oximetry Intake & Output 02/26/18 02/27/18 02/27/18 18:59 06:59 18:59 Intake Total 1080 / 1080 480 / 480 175 / 175 Output Total 460 / 460 Balance 620 / 620 480 / 480 175 / 175 Weight 133.2 kg Intake: IV 260 / 260 175 / 175 Heparin/NS PF Inj 1,000 ML @ 0 10 / 10 mls/hr .ROUTE .STK-MED ONE Rx#: [id number] Heparin/D5W 25,000 U/250 mL 25, 250 / 250 175 / 175 000 unit In 250 ml @ 1,500 UNITS/HR 15 mls/hr IV.CONT TITRATE PRN Rx#:[id number] Oral 720 / 720 480 / 480 Anesthesia Amount 100 / 100 Output: Urine 460 / 460 Other: # Voids 3 # Incontinent Voids 1 Date of Last Bowel Movement 02/26/18 02/27/18 # Bowel Movements 1 Narrative: GENERAL: Well-developed, well-nourished, NAD. SKIN: Focused skin assessment warm/dry. HEAD: Atraumatic. Normocephalic. EYES: Pupils equal and round. No scleral icterus. No injection or drainage. ENT: No nasal bleeding or discharge. Mucous membranes pink and moist. NECK: Trachea midline. No JVD. CARDIOVASCULAR: Regular rate and rhythm. RESPIRATORY: No accessory muscle use. Clear to auscultation. Breath sounds equal bilaterally. GASTROINTESTINAL: Abdomen soft, non-tender, nondistended. MUSCULOSKELETAL: No obvious deformities. No clubbing. No cyanosis. No edema. NEUROLOGICAL: Awake and alert. No obvious cranial nerve deficits. Motor grossly within normal limits. Normal speech. PSYCHIATRIC: Appropriate mood and affect; insight and judgment normal. Results Procedures completed during hospitalization: Cardiac catheterization Labs on day of discharge: Labs from last 24 hours 02/27/18 02/27/18 07:57 01:09 WBC 6.6 RBC 4.71 Hgb 13.5 Hct 40.3 MCV 85.6 MCH 28.8 MCHC 33.6 RDW 15.0 Plt Count 186 MPV 10.7 APTT 63.2 H - Impressions ITS Impressions Chest X-Ray 02/23/18 01:46 CONCLUSION: Negative examination. Discharge Plan - Discharge Disposition Patient Disposition: Discharge Home - Discharge Condition Condition: Stable - Discharge Order Discharge Orders: Discharge Order (Routine); Ordered 02/27/18 Ordered By: Shlomo Phillips - Discharge Details Anticipated Discharge Date: 02/27/18 Discharge Comment: OK to discharge if cleared by cardiology, thanks - Physicians Team Primary Care Provider: Edgard Corral Attending Provider: Shlomo Phillips Other Providers: Reymundo Willis MD
--- NOTE | 2018-02-27 10:57 | P.PNCA ---
Subjective Interval history: alert in nad Medications and Allergies Active Medications: Active Medications Acetaminophen (Tylenol) 500 mg PO Q8H PRN PRN Reason: PAIN 1-10 Last Admin: 02/26/18 20:48 Dose: 500 mg Al Hydroxide/Mg Hydroxide (Milk Of Magnesia Liq) 30 ml PO Q12H PRN PRN Reason: Mild Constipation Alprazolam (Xanax) 0.5 mg PO TID PRN PRN Reason: Anxiety Last Admin: 02/25/18 20:47 Dose: 0.5 mg Amlodipine Besylate (Norvasc) 10 mg PO DAILY [facility] Last Admin: 02/27/18 08:50 Dose: 10 mg Apixaban (Eliquis) 2.5 mg PO BID [facility] Last Admin: 02/27/18 08:51 Dose: 2.5 mg Bisacodyl (Dulcolax Supp) 10 mg RECTAL DAILY PRN PRN Reason: SEVERE CONSITIPATION Budesonide/Formoterol Fumarate (Symbicort 160/4.5 Mcg Inh) 2 puff INH BID [facility] Last Admin: 02/27/18 08:52 Dose: 2 puff Lactulose (Lactulose Liq) 30 ml PO DAILY PRN PRN Reason: SEVERE CONSITIPATION Losartan Potassium (Cozaar) 100 mg PO DAILY [facility] Last Admin: 02/27/18 08:50 Dose: 100 mg Metoprolol Tartrate (Lopressor) 25 mg PO BID [facility] Last Admin: 02/27/18 08:50 Dose: 25 mg Pantoprazole Sodium (Protonix) 40 mg PO DAILY [facility] Last Admin: 02/27/18 08:51 Dose: 40 mg Sennosides (Senokot) 17.2 mg PO Q12H PRN PRN Reason: Moderate Constipation Sodium Chloride (Ns Flush) 2 ml IV.FLUSH BID [facility] Last Admin: 02/27/18 08:52 Dose: 2 ml Sodium Chloride (Ns Flush) 2 ml IV.FLUSH PRN PRN PRN Reason: FLUSH AFTER USING IV ACCESS Sodium Chloride (Ns Flush) 2 ml IV.FLUSH BID [facility] Last Admin: 02/27/18 08:52 Dose: Not Given Sodium Chloride (Ns Flush) 2 ml IV.FLUSH PRN PRN PRN Reason: FLUSH AFTER USING IV ACCESS Zolpidem Tartrate (Ambien) 10 mg PO HS [facility] Last Admin: 02/26/18 20:48 Dose: 10 mg Allergies Allergy/AdvReac Type Severity Reaction Status Date / Time ibuprofen Allergy Severe ITCHING Unverified 11/29/16 22:41 Home Medications Medication Instructions Recorded Confirmed Type alprazolam 0.5 mg PO TID PRN 02/24/18 02/24/18 History amlodipine 10 mg PO DAILY 02/24/18 02/24/18 History fluticasone-salmeterol [Advair 1 inh INHALATION BID 02/24/18 02/24/18 History Diskus] furosemide 40 mg PO DAILY 02/24/18 02/24/18 History pantoprazole 40 mg PO DAILY 02/24/18 02/24/18 History simvastatin 80 mg PO QPM 02/24/18 02/24/18 History zolpidem 10 mg PO HS 02/24/18 02/24/18 History Physical Exam Vital signs: Vital Signs 02/26/18 11:00 02/26/18 11:41 02/26/18 13:00 Temperature Pulse Rate 62 62 60 Respiratory Rate 18 Blood Pressure 147/74 H Pulse Oximetry 98 02/26/18 14:00 02/26/18 15:00 02/26/18 16:00 Temperature Pulse Rate 68 70 62 Respiratory Rate 20 Blood Pressure 154/88 H Pulse Oximetry 02/26/18 17:00 02/26/18 18:00 02/26/18 19:00 Temperature Pulse Rate 70 72 92 H Respiratory Rate Blood Pressure Pulse Oximetry 02/26/18 20:00 02/26/18 21:00 02/26/18 22:00 Temperature 98.3 F Pulse Rate 68 61 64 Respiratory Rate 20 Blood Pressure 145/83 H Pulse Oximetry 97 02/26/18 23:00 02/27/18 00:00 02/27/18 01:00 Temperature 97.9 F Pulse Rate 69 82 57 L Respiratory Rate 18 Blood Pressure 132/76 Pulse Oximetry 97 02/27/18 02:00 02/27/18 03:00 02/27/18 03:44 Temperature 98 F Pulse Rate 53 L 55 L 63 Respiratory Rate 17 Blood Pressure 136/68 Pulse Oximetry 98 02/27/18 04:00 02/27/18 05:00 02/27/18 06:00 Temperature Pulse Rate 58 L 53 L 55 L Respiratory Rate Blood Pressure Pulse Oximetry 02/27/18 07:00 02/27/18 08:00 02/27/18 09:18 Temperature 98 F Pulse Rate 57 L 66 74 Respiratory Rate 18 Blood Pressure 126/78 Pulse Oximetry 93 L Intake & Output 02/26/18 02/27/18 02/27/18 18:59 06:59 18:59 Intake Total 1080 / 1080 480 / 480 415 / 415 Output Total 460 / 460 175 / 175 Balance 620 / 620 480 / 480 240 / 240 Weight 133.2 kg Intake: IV 260 / 260 175 / 175 Heparin/NS PF Inj 1,000 ML @ 0 10 / 10 mls/hr .ROUTE .STK-MED ONE Rx#: [id number] Heparin/D5W 25,000 U/250 mL 25, 250 / 250 175 / 175 000 unit In 250 ml @ 1,500 UNITS/HR 15 mls/hr IV.CONT TITRATE PRN Rx#:[id number] Oral 720 / 720 480 / 480 240 / 240 Anesthesia Amount 100 / 100 Output: Urine 460 / 460 175 / 175 Other: # Voids 3 1 # Incontinent Voids 1 Date of Last Bowel Movement 02/26/18 02/27/18 # Bowel Movements 1 - Constitutional no acute distress - Routine HEENT Exam Head: Present: normocephalic - Routine Neck Exam Present: supple - Routine Respiratory Exam Present: CTA bilaterally - Routine Cardiovascular Exam Present: S1, S2 - Routine Abdominal Exam Present: soft - Routine Extremities Exam Comments: no juan Results 02/27/18 07:57 02/26/18 05:57 Cardiac Enzymes 02/26/18 02/26/18 Range/Units 05:57 05:57 Troponin I 0.03 (0.02-0.05) ng/mL B-Natriuretic Peptide 38 (0-100) pg/mL Coagulation 02/25/18 02/25/18 02/25/18 Range/Units 10:53 13:57 16:20 APTT 55.8 H D 65.4 H 68.6 H (23.4-31.7) sec B-Natriuretic Peptide (0-100) pg/mL 02/25/18 02/26/18 02/27/18 Range/Units 22:25 05:57 01:09 APTT 57.8 H 63.2 H (23.4-31.7) sec B-Natriuretic Peptide 38 (0-100) pg/mL CBC 02/26/18 02/27/18 Range/Units 05:57 07:57 WBC 7.5 6.6 (4.0-11.0) th/mm3 RBC 4.86 4.71 (4.00-5.30) mil/mm3 Hgb 13.8 13.5 (11.6-15.3) gm/dL Hct 41.5 40.3 (35.0-46.0) % Plt Count 198 186 (150-450) th/mm3 Comprehensive Metabolic Panel 02/26/18 Range/Units 05:57 Sodium 143 (136-145) meq/L Potassium 4.3 (3.5-5.1) meq/L Chloride 105 (98-107) meq/L Carbon Dioxide 29.7 (21.0-32.0) meq/L BUN 12 (7-18) mg/dL Creatinine 0.83 (0.50-1.00) mg/dL Calcium 8.8 (8.5-10.1) mg/dL Intake and Output 02/26/18 02/27/18 02/27/18 22:59 06:59 14:59 Intake Total 970 / 970 480 / 480 415 / 415 Output Total 460 / 460 175 / 175 Balance 510 / 510 480 / 480 240 / 240 Intake: IV 250 / 250 175 / 175 Heparin/D5W 25,000 U/250 mL 25, 250 / 250 175 / 175 000 unit In 250 ml @ 1,500 UNITS/HR 15 mls/hr IV.CONT TITRATE PRN Rx#:[id number] Oral 720 / 720 480 / 480 240 / 240 Output: Urine 460 / 460 175 / 175 Other: # Voids 3 1 # Incontinent Voids 1 Date of Last Bowel Movement 02/26/18 02/27/18 # Bowel Movements 1 Weight 133.2 kg Assessment and Plan - Assessment (1) CHF (congestive heart failure) Code(s): I50.9 - Heart failure, unspecified Status: Acute (2) Unstable angina Code(s): I20.0 - Unstable angina Status: Acute (3) Pulmonary embolus Code(s): I26.99 - Other pulmonary embolism without acute cor pulmonale Status : Acute (4) SVT (supraventricular tachycardia) Code(s): I47.1 - Supraventricular tachycardia Status: Acute - Plan 1.) CAD - mild, noncardiac chest pain, on eliquis, patient strongly advised not to travel for 7 days due to femoral artery puncture or risk life threatening bleeding, she understands, nurse present at the bedside 2.) SVT - controlled on lopressor 3.) H/o pe - continue eliquis 2.5 mg bid
== END 2018-02-27 11:20 | disposition home or self-care (01) ==
LOC: NEDA 01:25 → NEPE 01:25 → NEPHCDU 05:22 → HCIS 05:30
PROVIDERS: ADMIT Hospitalist; ATTEND Hospitalist